=== PATIENT | male | born 1935 | race Caucasian/White ===

== ENCOUNTER 2016-10-01 11:44 | Inpatient (IN) | payer MEDICARE, OTHER ==
[~2016-10-01] VITALS: Ht 180.3 cm; Wt 107.4 kg
[2016-10-01 11:47] VITALS: BP 136/88; PULSE 80; RESP 14; TEMP 99.2; O2SAT 95
[2016-10-01 18:00] VITALS: BP 149/92; PULSE 119; RESP 18; O2SAT 91
[2016-10-01] MEDS ORDERED: WARF-23 PO (18:13)
[2016-10-01] MEDS ORDERED: SAWCAP2 PO (18:13)
[2016-10-01] MEDS ORDERED: PRAV20TA2 PO (18:13)
[2016-10-01] MEDS ORDERED: MAGNESIUM (18:13)
[2016-10-01] MEDS ORDERED: WARF-21 PO (18:13)
[2016-10-01 18:45] LABS: AUTOMATED NEUTROPHIL # 7.4 TH/MM3 (1.8-7.7); BASOPHIL % 0.3 % (0.0-2.0); EOSINOPHIL # 0.1 TH/MM3 (0-0.4); EOSINOPHIL % 0.8 % (0.0-4.0); HEMATOCRIT 39.8 % (39.0-51.0); HEMO FLAGS DIFF FINAL; LYMPH % 5.1 % (9.0-44.0); LYMPHOCYTE # 0.5 TH/MM3 (1.0-4.8); MEAN CELL VOLUME 94.1 FL (80.0-100.0); MEAN CORPUSCULAR HEMOGLOBIN 31.8 PG (27.0-34.0); MEAN CORPUSCULAR HGB CONC 33.8 % (32.0-36.0); MONO % 13.5 % (0.0-8.0); NEUT % 80.3 % (16.0-70.0); PLATELET COUNT 163 TH/MM3 (150-450); RED BLOOD COUNT 4.23 MIL/MM3 (4.50-5.90); RED CELL DISTRIBUTION WIDTH 13.3 % (11.6-17.2); WHITE BLOOD COUNT 9.2 TH/MM3 (4.0-11.0)
[2016-10-01 19:00] VITALS: BP 146/92; PULSE 100; RESP 18; O2SAT 94
[2016-10-01 19:01] LABS: APTT (PATIENT) 62.5 SEC (24.3-30.1); INTERNATIONAL NORMALIZED RATIO 2.3 RATIO
[2016-10-01 19:02] LABS: BLOOD GAS BASE EXCESS 0.2 mmol/L (-2-2); BLOOD GAS CARBOXYHEMOGLOBIN 2.5 % (0-4); BLOOD GAS HCO3 24 mmol/L (22-26); BLOOD GAS METHEMOGLOBIN 1.6 % (0-2); BLOOD GAS O2 HGB SATURATION 89 % (90-100); BLOOD GAS OXYGEN CONTENT 17.2 Vol % (12.0-20.0); BLOOD GAS PCO2 33 mmHg (38-42); BLOOD GAS PO2 62 mmHG (61-120); BLOOD GAS TOTAL HGB 13.8 G/DL (12.0-16.0); TEMP CORR TO 98.6
[2016-10-01 19:03] LABS: CRITICAL VALUE YES; DRAW SITE RT RADIAL; FIO2 21 %; NUMBER OF ARTERIAL PUNCTURES 1; OXYGEN DEVICE ROOM AIR; STAT YES; ULNAR PULSE PRESENT
--- NOTE | 2016-10-01 19:04 | PD ---
HPI Chief Complaint: General Weakness Time Seen by Provider: 17:37 Travel History International Travel<30 days: No Contact w/Intl Traveler<30days: No Traveled to known affect area: No History of Present Illness HPI This is an 81-year-old male who presents to the emergency department with progressive worsening weakness over the past week. History is limited because he is hard of hearing and most history is obtained through his . The reports that he started having neck stiffness one week ago and progressively has gotten increasingly weak. He says that his weakness has affected his arms and his legs equally. Over the past several days he's been unable to walk and unable to get to the bathroom quick enough. His is having a hard time managing him at home. He's been to the emergency department at [facility] times. There they did a CT of his head and cervical spine and diagnosed with torticollis and discharged him. He saw Dr. Lee Hciks in clinic who ordered an MRI of the cervical spine which was reportedly reassuring. He referred him to come to [place] for further evaluation. [facility] Past Medical History Atrial Fibrillation: Yes Heart Rhythm Problems: Yes (A. 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 HEAD: Atraumatic. Normocephalic. EYES: Pupils equal and round. No injection or drainage. ENT: Moist mucous membranes NECK: Trachea midline. CARDIOVASCULAR: Regular rate and rhythm. No murmur appreciated. RESPIRATORY: Clear to auscultation. Breath sounds equal bilaterally. GASTROINTESTINAL: Abdomen soft, non-tender, nondistended. MUSCULOSKELETAL: No obvious deformities. NEUROLOGICAL: Awake and alert. No obvious cranial nerve deficits. 4 out of 5 strength in the bilateral lower extremities, 5 out of 5 strength in the bilateral upper extremities. 3+ brachial radialis reflexes bilaterally, patellar and Achilles reflexes bilaterally with some fatigable clonus in the bilateral lower extremities. Fasciculations in the upper extremities. No ataxia. PSYCHIATRIC: Appropriate mood and affect; insight and judgment normal. Data Data Last Documented VS Vital Signs Date Time Temp Pulse Resp B/P Pulse Ox O2 Delivery O2 Flow Rate FiO2 10/01/16 18:02 103 16 92 Room Air 10/01/16 18:00 149/92 10/01/16 11:47 99.2 Orders Complete Blood Count With Diff (10/01/16 18:06) Comprehensive Metabolic Panel (10/01/16 18:06) Creatine Kinase (Cpk) (10/01/16 18:06) ^ Insert Iv (10/01/16 18:06) Urinalysis - C+S If Indicated (10/01/16 18:06) Arterial Blood Gas (Abg) (10/01/16 ) Prothrombin Time / Inr (Pt) (10/01/16 18:06) Act Partial Throm Time (Ptt) (10/01/16 18:06) Labs Laboratory Tests Test 10/01/16 18:30 White Blood Count 9.2 TH/MM3 Red Blood Count 4.23 MIL/MM3 Hemoglobin 13.5 GM/DL Hematocrit 39.8 % Mean Corpuscular Volume 94.1 FL Mean Corpuscular Hemoglobin 31.8 PG Mean Corpuscular Hemoglobin 33.8 % Concent Red Cell Distribution Width 13.3 % Platelet Count 163 TH/MM3 Mean Platelet Volume 9.5 FL Neutrophils (%) (Auto) 80.3 % Lymphocytes (%) (Auto) 5.1 % Monocytes (%) (Auto) 13.5 % Eosinophils (%) (Auto) 0.8 % Basophils (%) (Auto) 0.3 % Neutrophils # (Auto) 7.4 TH/MM3 Lymphocytes # (Auto) 0.5 TH/MM3 Monocytes # (Auto) 1.3 TH/MM3 Eosinophils # (Auto) 0.1 TH/MM3 Basophils # (Auto) 0.0 TH/MM3 CBC Comment DIFF FINAL Differential Comment MDM Medical Decision Making Medical Screen Exam Complete: Yes Emergency Medical Condition: Yes Differential Diagnosis Cervical myelopathy, multiple sclerosis, ALS, Guillain-Lynch, stroke, myasthenia gravis, [place] Narrative Course This is an 81-year-old male who presents to the emergency department with progressive weakness that's been worsening over the past week. He is at the point where he is unable to walk and is unable to transfer from wheelchair to bed without full assistance. He was placed on a monitor and an IV was established labs will be obtained. I don't think any additional imaging is warranted here in the emergency department as he's had CT scans at outside hospital. He is hyperreflexic on exam with some objective weakness in the bilateral lower extremities. I think the patient requires inpatient neurology consultation. He will possibly require further imaging and an LP. Dr. Smith will follow-up on labs and admit the patient. Carol Blevins MD Oct 01, 2016 19:04
[2016-10-01 19:11] LABS: ANION GAP 8 MEQ/L (5-15); AST (GOT) 34 U/L (15-37); BICARBONATE 26.6 MEQ/L (21.0-32.0); BLOOD UREA NITROGEN 17 MG/DL (7-18); CHLORIDE 104 MEQ/L (98-107); GLOMERULAR FILTRATION RATE 71 ML/MIN (>89); POTASSIUM 4.1 MEQ/L (3.5-5.1); SODIUM (NA) 139 MEQ/L (136-145)
[2016-10-01 19:15] LABS: ALKALINE PHOSPHATASE 98 U/L (45-117); ALT (GPT) 29 U/L (12-78)
[2016-10-01 19:25] LABS: CREATINE KINASE 61 U/L (39-308)
[2016-10-01 19:35] LABS: BLOOD, URINE MOD (NEG); COMMENT (UR) CULT NOT INDICATED; CULTURE IF INDICATED CULT NOT INDICATED; GLUCOSE,URINE NEG (NEG); KETONE, URINE 10 mg/dL (NEG); MUCUS URINE FEW /lpf (OCC); NITRITE,URINE NEG (NEG); PH, URINE 5.5 (5.0-8.5); URINE COLOR YELLOW (YELLW/STRAW)
[2016-10-01 20:00] VITALS: BP 188/91; PULSE 101; RESP 18; O2SAT 95
--- NOTE | 2016-10-01 21:24 | HHI.HP ---
HPI Service [facility] Primary Care Physician Non-Staff Admission Diagnosis Bilateral upper and lower extremity weakness, Diagnoses: (1) Weakness Diagnosis: Principal (2) Dehydration Diagnosis: Principal (3) A-fib Diagnosis: Principal (4) HTN (hypertension) Diagnosis: Principal Travel History International Travel<30 Days: No Contact w/Intl Traveler <30 Da: No Traveled to Known Affected Are: No History of Present Illness This is an 81-year-old male with PMH of HTN, A. fib on Coumadin and Hyperlipidemia who was referred to the ER by his Orthopedic Surgeon, Dr. Lee Hicks for further evaluation of weakness. Pt poor historian, however he notes significant pain in the "back of my head" for approx 1wk, shortly after developed weakness of bilateral arms and legs. Per , pt has been unable to ambulate x1 wk since onset of symptoms. Denies recent fever, chills, nausea, vomiting or sick contacts. Was seen at [place], CT Head/C-Spine reportedly negative and pt diagnosed w/ Cervical Torticollis and was d/c'd from ER. Seen by Dr. Hicks and referred for outpatient MRI C-Spine, also reportedly normal however sent to ER for progressive symptoms. On arrival, BP 149/92, HR 119, O2 sat 91% on RA, Temp 99.2. CBC unremarkable except for elevated neutrophil count. Chemistry unremarkable except for GFR 71. UA negative for UTI, mild hematuria. INR 2.3. Review of Systems Except as stated in HPI: all other systems reviewed are Neg ROS: 14 point review of systems otherwise negative. Past Family Social History Past Medical History PMH: HTN, A. fib on Coumadin and Hyperlipidemia Past Surgical History PAST SURGICAL HISTORY: Bilateral Cataract Surgery, Squamous Cell Melanoma Left Arm Allergies: Coded Allergies: No Known Allergies (Unverified , 10/01/16) Family History PAST FAMILY HISTORY: Reviewed. No h/o DM or CAD Social History PAST SOCIAL HISTORY: Occasional alcohol. Negative for tobacco or drugs. Physical Exam Vital Signs Vital Signs Date Time Temp Pulse Resp B/P Pulse Ox O2 Delivery O2 Flow Rate FiO2 10/01/16 20:00 101 18 188/91 95 Nasal Cannula 2 10/01/16 19:00 100 18 146/92 94 Nasal Cannula 2 10/01/16 18:02 103 16 92 Room Air 10/01/16 18:00 119 18 149/92 91 Room Air 10/01/16 11:47 99.2 80 14 136/88 95 Room Air Physical Exam PE: GENERAL: Elderly white male in no acute distress, [place], slow to verbalize but no apparent mental status change. HEENT: PERRLA, EOMI. No scleral icterus or conjunctival pallor. No lid lag or facial droop. Neck decreased ROM of flexion/extension due to pain CARDIOVASCULAR: Regular rate and rhythm. No obvious murmurs to auscultation. No chest tenderness to palpation. RESPIRATORY: No obvious rhonchi or wheezing. Clear to auscultation. Breath sounds equal bilaterally. GASTROINTESTINAL: Abdomen soft, non-tender, nondistended. BS normal. MUSCULOSKELETAL: Extremities without clubbing, cyanosis, or edema. No obvious deformities. NEUROLOGICAL: Awake, alert and oriented x4. No focal neurologic deficits. Moving both upper and lower extremities spontaneously. Strength 4/5 upper extremities, 5/5 lower extremities. Decreased hand life scientists. Laboratory Laboratory Tests Test 10/01/16 10/01/16 10/01/16 18:30 18:45 18:56 White Blood Count 9.2 Red Blood Count 4.23 Hemoglobin 13.5 Hematocrit 39.8 Mean Corpuscular Volume 94.1 Mean Corpuscular Hemoglobin 31.8 Mean Corpuscular Hemoglobin 33.8 Concent Red Cell Distribution Width 13.3 Platelet Count 163 Mean Platelet Volume 9.5 Neutrophils (%) (Auto) 80.3 Lymphocytes (%) (Auto) 5.1 Monocytes (%) (Auto) 13.5 Eosinophils (%) (Auto) 0.8 Basophils (%) (Auto) 0.3 Neutrophils # (Auto) 7.4 Lymphocytes # (Auto) 0.5 Monocytes # (Auto) 1.3 Eosinophils # (Auto) 0.1 Basophils # (Auto) 0.0 CBC Comment DIFF FINAL Differential Comment Prothrombin Time 26.0 Prothromb Time International 2.3 Ratio Activated Partial 62.5 Thromboplast Time Sodium Level 139 Potassium Level 4.1 Chloride Level 104 Carbon Dioxide Level 26.6 Anion Gap 8 Blood Urea Nitrogen 17 Creatinine 1.01 Estimat Glomerular Filtration 71 Rate Random Glucose 116 Calcium Level 8.7 Total Bilirubin 1.0 Aspartate Amino Transf 34 (AST/SGOT) Alanine Aminotransferase 29 (ALT/SGPT) Alkaline Phosphatase 98 Total Creatine Kinase 61 Total Protein 7.3 Albumin 3.0 Urine Color YELLOW Urine Turbidity CLEAR Urine pH 5.5 Urine Specific [place] 1.031 Urine Protein 30 Urine Glucose (UA) NEG Urine Ketones 10 Urine Occult Blood MOD Urine Nitrite NEG Urine Bilirubin NEG Urine Urobilinogen 2.0 Urine Leukocyte Esterase NEG Urine RBC 6 Urine WBC 1 Urine Mucus FEW Microscopic Urinalysis Comment CULT NOT INDICATED Blood Gas Puncture Site RT RADIAL Blood Gas Patient Temperature 98.6 Blood Gas HCO3 24 Blood Gas Base Excess 0.2 Blood Gas Oxygen Saturation 89 Arterial Blood pH 7.47 Arterial Blood Partial 33 Pressure CO2 Arterial Blood Partial 62 Pressure O2 Arterial Blood Oxygen Content 17.2 Arterial Blood 2.5 Carboxyhemoglobin Arterial Blood Methemoglobin 1.6 Blood Gas Hemoglobin 13.8 Oxygen Delivery Device ROOM AIR Blood Gas Inspired Oxygen 21 Result Diagram: 10/01/16182910/01/161829 Assessment and Plan Problem List: (1) Weakness ICD Code: R53.1 Status: Acute (2) Dehydration ICD Code: E86.0 Status: Acute (3) A-fib ICD Code: I48.91 Status: Acute (4) HTN (hypertension) ICD Code: I10 Status: Acute Assessment and Plan A/P: 1. Weakness: progressive upper and lower extremity weakness x1 wk w/ associated neck stiffness, no recent viral infection. S/p eval by Dr. Lee Hicks, sent for outpatient MRI C-Spine, reportedly normal and referred to ER for further evaluation. CT Head[facility]Sp[facility] at [facility] also reportedly negative. Check NCV/EMG, Will consult Dr. Hicks for further evaluation, also consult Neurology, likely need LP. PT for eval/tx. 2. Dehydration: GFR 71, BUN/Creatinine normal. U/a negative for UTI, mild hematuria. Repeat U/a to eval for persistent hematuria. IVF for hydration, repeat labs in am. 3. A-fib: Chronic. On Coumadin. INR 2.3, will hold Coumadin for possible LP. Repeat INR in am. 4. HTN: BP 160's systolic, will monitor. 5. DVT Prophylaxis: SCD/Teds. 6. Social work for d/c planning as needed. 7. Case discussed w/ ER physician at length. Evelyne Jacobs MD Oct 01, 2016 21:24
[2016-10-01] MEDS ORDERED: ONDANSETRON HCL 4 MG/2 ML VIAL IVP PRN (21:30)
[2016-10-01] MEDS ORDERED: BISACODYL 10 MG SUPP PR PRN (21:30)
[2016-10-01] MEDS ORDERED: METOPROLOL TARTRATE 5 MG/5 ML VIAL IV PUSH ONE (21:30)
[2016-10-01] MEDS ORDERED: ACETAMINOPHEN 325 MG TAB PO PRN (21:30)
[2016-10-01] MEDS: SODIUM CHLOR 0.9% 1000 ML INJ 1,000 ML IV SCH (22:05)
[2016-10-01 22:06] VITALS: BP 161/99; PULSE 121; RESP 18; O2SAT 97
--- NOTE | 2016-10-01 22:12 | PD ---
Physical Exam Date Seen by Provider: Oct 01, 2016 Time Seen by Provider: 19:15 Narrative Patient signed out to me by Dr. Carol Blevins at 7 PM. I was the physician replacing her. At this time, we are waiting on laboratory tests to come back. The decision was to admit the patient. The patient has new onset bilateral upper and lower shimmy weakness with clonus. Data Data Last Documented VS Vital Signs Date Time Temp Pulse Resp B/P Pulse Ox O2 Delivery O2 Flow Rate FiO2 10/01/16 20:00 101 18 188/91 95 Nasal Cannula 2 10/01/16 11:47 99.2 Orders Complete Blood Count With Diff (10/01/16 18:06) Comprehensive Metabolic Panel (10/01/16 18:06) Creatine Kinase (Cpk) (10/01/16 18:06) ^ Insert Iv (10/01/16 18:06) Urinalysis - C+S If Indicated (10/01/16 18:06) Arterial Blood Gas (Abg) (10/01/16 ) Prothrombin Time / Inr (Pt) (10/01/16 18:06) Act Partial Throm Time (Ptt) (10/01/16 18:06) Diet Heart Healthy (10/01/16 Dinner) Admit Order (Ed Use Only) (10/01/16 20:38) Labs Laboratory Tests Test 10/01/16 10/01/16 10/01/16 18:30 18:45 18:56 White Blood Count 9.2 TH/MM3 Red Blood Count 4.23 MIL/MM3 Hemoglobin 13.5 GM/DL Hematocrit 39.8 % Mean Corpuscular Volume 94.1 FL Mean Corpuscular Hemoglobin 31.8 PG Mean Corpuscular Hemoglobin 33.8 % Concent Red Cell Distribution Width 13.3 % Platelet Count 163 TH/MM3 Mean Platelet Volume 9.5 FL Neutrophils (%) (Auto) 80.3 % Lymphocytes (%) (Auto) 5.1 % Monocytes (%) (Auto) 13.5 % Eosinophils (%) (Auto) 0.8 % Basophils (%) (Auto) 0.3 % Neutrophils # (Auto) 7.4 TH/MM3 Lymphocytes # (Auto) 0.5 TH/MM3 Monocytes # (Auto) 1.3 TH/MM3 Eosinophils # (Auto) 0.1 TH/MM3 Basophils # (Auto) 0.0 TH/MM3 CBC Comment DIFF FINAL Differential Comment Prothrombin Time 26.0 SEC Prothromb Time International 2.3 RATIO Ratio Activated Partial 62.5 SEC Thromboplast Time Sodium Level 139 MEQ/L Potassium Level 4.1 MEQ/L Chloride Level 104 MEQ/L Carbon Dioxide Level 26.6 MEQ/L Anion Gap 8 MEQ/L Blood Urea Nitrogen 17 MG/DL Creatinine 1.01 MG/DL Estimat Glomerular Filtration 71 ML/MIN Rate Random Glucose 116 MG/DL Calcium Level 8.7 MG/DL Total Bilirubin 1.0 MG/DL Aspartate Amino Transf 34 U/L (AST/SGOT) Alanine Aminotransferase 29 U/L (ALT/SGPT) Alkaline Phosphatase 98 U/L Total Creatine Kinase 61 U/L Total Protein 7.3 GM/DL Albumin 3.0 GM/DL Urine Color YELLOW Urine Turbidity CLEAR Urine pH 5.5 Urine Specific [place] 1.031 Urine Protein 30 mg/dL Urine Glucose (UA) NEG mg/dL Urine Ketones 10 mg/dL Urine Occult Blood MOD Urine Nitrite NEG Urine Bilirubin NEG Urine Urobilinogen 2.0 MG/DL Urine Leukocyte Esterase NEG Urine RBC 6 /hpf Urine WBC 1 /hpf Urine Mucus FEW /lpf Microscopic Urinalysis Comment CULT NOT INDICATED Blood Gas Puncture Site RT RADIAL Blood Gas Patient Temperature 98.6 Blood Gas HCO3 24 mmol/L Blood Gas Base Excess 0.2 mmol/L Blood Gas Oxygen Saturation 89 % Arterial Blood pH 7.47 Arterial Blood Partial 33 mmHg Pressure CO2 Arterial Blood Partial 62 mmHG Pressure O2 Arterial Blood Oxygen Content 17.2 Vol % Arterial Blood 2.5 % Carboxyhemoglobin Arterial Blood Methemoglobin 1.6 % Blood Gas Hemoglobin 13.8 G/DL Oxygen Delivery Device ROOM AIR Blood Gas Inspired Oxygen 21 % [facility] Medical Record Reviewed: Yes Supervised Visit with GIOVANNI: No Differential Diagnosis Cervical spine disease with cord associated weakness versus Lyme disease versus ALS versus other neurologic progressive disease Narrative Course 81-year-old gentleman who presents with 1 week of neck pain and stiffness followed by weakness of his bilateral upper and lower extremities. The patient was seen initially by Dr. Carol Blevins and initial workup started. We are waiting on labs before admission. Laboratory tests come back within normal limits. The case was discussed with Dr. Evelyne Che, [facility], who will bring the patient under her service under observation. The patient is currently on Coumadin and his INR is 2.5. If we anticipate lumbar puncture, the Coumadin will need to be held. Diagnosis Primary Impression: bilateral upper and lower extremity weakness Additional Impression: cervical spine pain and stiffness Caio Smith MD Oct 01, 2016 22:12
[2016-10-02] VITALS (7 sets, daily range): BP systolic 147–174; BP diastolic 87–107; PULSE 76–140; RESP 14–18; TEMP 98–98.8; O2SAT 90–99
[2016-10-02 04:04] LABS: AUTOMATED NEUTROPHIL # 7.4 TH/MM3 (1.8-7.7); BASOPHIL % 0.4 % (0.0-2.0); EOSINOPHIL % 0.5 % (0.0-4.0); HEMATOCRIT 38.3 % (39.0-51.0); HEMO FLAGS DIFF FINAL; LYMPH % 6.1 % (9.0-44.0); LYMPHOCYTE # 0.6 TH/MM3 (1.0-4.8); MEAN CELL VOLUME 93.5 FL (80.0-100.0); MEAN CORPUSCULAR HGB CONC 34.2 % (32.0-36.0); MONO % 15.5 % (0.0-8.0); NEUT % 77.5 % (16.0-70.0); PLATELET COUNT 165 TH/MM3 (150-450); RED CELL DISTRIBUTION WIDTH 13.3 % (11.6-17.2); WHITE BLOOD COUNT 9.6 TH/MM3 (4.0-11.0)
[2016-10-02 04:27] LABS: ALT (GPT) 26 U/L (12-78); ANION GAP 9 MEQ/L (5-15); AST (GOT) 30 U/L (15-37); BICARBONATE 25.3 MEQ/L (21.0-32.0); BLOOD UREA NITROGEN 17 MG/DL (7-18); CHLORIDE 107 MEQ/L (98-107); GLOMERULAR FILTRATION RATE 82 ML/MIN (>89); SODIUM (NA) 141 MEQ/L (136-145)
[2016-10-02 04:28] LABS: ALKALINE PHOSPHATASE 98 U/L (45-117); TOTAL BILIRUBIN ADULT 1.3 MG/DL (0.2-1.0)
[2016-10-02 04:31] LABS: INTERNATIONAL NORMALIZED RATIO 2.4 RATIO; PROTHROMBIN TIME - PATIENT 27.4 SEC (9.8-11.6)
[2016-10-02] MEDS: PRAVASTATIN SOD 20 MG TAB PO SCH (08:38)
[2016-10-02] MEDS: SODIUM CHLOR 0.9% 1000 ML INJ 1,000 ML IV SCH ×2 (08:38→15:55)
[2016-10-02] MEDS: SODIUM CHLORIDE 0.9% FLUSH 5 ML FLUSH FLUSH SCH ×2 (08:38→20:21)
--- NOTE | 2016-10-02 10:00 | MB ---
cc: JESSE RICCI M.D., CAMILLE MD DATE OF CONSULTATION October 02, 2016 REQUESTING PHYSICIAN Evelyne Jacobs MD CHIEF COMPLAINT Neck pain, weakness. HISTORY OF PRESENT ILLNESS An 81-year-old male presents with the following history: On September 26, 2016, the patient insidious onset of stiffness, neck pain and generalized weakness. He went to [facility] in [place] two times on September 26, 2016, and then went back to that same facility on September 28, 2016. The patient was evaluated by myself in the office on September 30, 2016. X-rays of the cervical spine showed the patient to have cervical spine degenerative disc disease and osteoarthritis. MRI scan of the cervical spine was taken at [facility] on September 30, 2016. This showed the patient to have C4-5 osteophyte disk complex, right greater left foraminal stenosis; C5-6 osteophyte disk complex, mild to moderate protruding disk, right greater then left foraminal stenosis; C6-7 osteophyte disk complex; degenerative disc disease, osteoarthritis. The patient did not show significant spinal cord compression. There was no evidence of a diskitis by MRI scan. The patient telephoned the office yesterday. stated that the patient was so weak that she could not him out of a chair. I told the family to have him transported to [facility] Emergency Department for further evaluation and management. PAST MEDICAL HISTORY, PAST SURGICAL HISTORY, FAMILY HISTORY, REVIEW OF SYSTEMS See accompanying records. PHYSICAL EXAMINATION GENERAL: An 81-year-old male who looks his stated age. The patient has mild degree of spasm and tenderness of the posterior cervical spine area. Flexion 20 degrees, extension 10 degrees, left rotation is 20 degrees, right rotation 20 degrees. Negative Luly sign. Negative Babinski side. No myotomal weakness was noted. IMPRESSION 1. Cervical spine degenerative disc disease, osteoarthritis. 2. Generalized weakness. PLAN 1. Recommend Neurology evaluation. 2. I explained to the patient he may be required to have a lumbar spine puncture with analysis of cerebrospinal fluid to rule out possible meningitis. 3. Also we will order a CPK, Westergren sed rate, C-reactive protein. 4. We will continue to monitor the patient with you. Jesse Ricci MD AG/SSB /9:35 AM /9:45 AM
--- NOTE | 2016-10-02 11:18 | MB ---
cc: ANJU MILES M.D. DATE OF CONSULTATION 10/02/2016 DATE OF 1935 AGE [age] years old REASON FOR CONSULTATION Possible meningitis. The patient is an 81-year-old gentleman. History is taken solely from his . Apparently the patient was fine . They were active, they were bike riding. The patient started experiencing some weakness, some cervicogenic pain. I believe she stated on Thursday went to [facility] twice that day, went back to the same facility two days later, dismissed from there and hence came to the hospital yesterday. He was initially referred to Orthopedic Surgery; he saw Dr. Lee Hicks on 09/30/2016, had x-rays of his spine showing some degenerative changes. MRI was taken at [facility] the same day showing osteophyte complex at C4-5, some foraminal stenosis, C5-6 osteophyte complex, C6-7 osteophyte complex, but no cord compression, no enhancing lesions. Apparently yesterday the had to bring him in because he was unable to actually get up and walk on his own. The patient currently denies any severe neck pain. Denies a headache. Denies chest pain or shortness of breath. His stated he did not have any upper respiratory symptoms such as rhinorrhea or any cough. He has not been exposed to any sick people as far as they know. PAST MEDICAL HISTORY 1. Hypertension. 2. Atrial fibrillation on Coumadin. 3. Hyperlipidemia. PAST SURGICAL HISTORY 1. Cataracts. 2. Squamous cell melanoma left arm. ALLERGIES None reported. FAMILY HISTORY Noncontributory at this time. 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 Patient with alcohol. No tobacco or drugs. HOME MEDICATIONS Refer to his MAR are but apparently is on - 1. Pravastatin. 2. Saw palmetto. 3. Warfarin. ALLERGIES None reported. PHYSICAL EXAMINATION VITALS: Current temperature is 98.1, last temperature was 99.2 and that is his T-max, heart rate 83, respiratory rate 14, blood pressure 173/90 sating at 94% on 2 liters nasal cannula. HEAD AND NECK: His neck is supple. It appears that he has some type of a lipoma in his occiput, maybe a sebaceous cyst, a little bit higher. On exam I do not appreciate any nuchal rigidity, just some tenderness. He can actually touch his chin to his breastbone. No signs of meningismus. Pupils are reactive. Visual wong are full. Face is symmetrical. Tongue midline. NEUROLOGIC: He is awake and alert. He knows he is in [place]. He cannot name the hospital. He can name his . He knows his date of and age. She knows the month and the year. He can name the President. Speech otherwise is fluent. Motor-cardoso he does not have any significant weakness in his arms or legs. No drift. No leg lag. No Luly's sign. No signs of myelopathy. DTRs are 2-3+ in the knees, 2+ upper extremities. Toes he withdraws. Cerebellar - Normal gait; cannot be assessed at this time. LABORATORY DATA White count is normal 9.2-9.6 on two consecutive days, hematocrit 38.3, neutrophils 77.5. Coag panel - INR is 2.4, PT 27.6. Chemistries - GFR 82, glucose 111, calcium 8.4, bilirubin 1.3, CRP is 15.8, albumin 2.8. Sed rate still pending I believe. Urine - Moderate blood, 6 RBCs. Culture is not indicated. There is no imaging performed of the brain. IMPRESSION An 81-year-old man with some cervicogenic pain, certainly I doubt this is a bacterial meningitis, could be of viral etiology. Infectious Disease will evaluate the patient. We will defer to ID if they think he needs a spinal tap; however, would consider putting him on acyclovir preventatively. I am going to get an EEG as well. I am not convinced that he needs antibiotics. I will also go ahead and get an MRI of the brain to make sure there is nothing else going on such as infarction or any enhancement. Of note, the patient has not received any type of injections in his neck such as an epidural; this does not look like a diskitis either. We will have Infectious Disease comment as well and I will go ahead and get the MRI and the EEG and make further recommendations. Thank you. MD AMARILYS Bennett/KAILASH /10:41 AM /11:00 AM
--- NOTE | 2016-10-02 12:59 | RADRPT ---
EXAM DATE/TIME: 10/02/2016 12:09 [place] COMPARISON: No previous studies available for comparison. INDICATIONS : Encephalitis. Neuro changes with neck pain. MEDICAL HISTORY : Hypertension. Atrial fibrillation. SURGICAL HISTORY : Cataracts and skin cancer removal. ENCOUNTER: Initial ACUITY: 2 day PAIN SCORE: 0/10 LOCATION: Head. TECHNIQUE: Multiplanar, multisequence MRI of the brain was performed without contrast. FINDINGS: CEREBRUM: Atrophy. There is an area of encephalomalacia involving the right occipital lobe. The ventricles are normal for age. No evidence of midline shift, mass lesion, hemorrhage or acute infarction. No extra axial fluid collections are seen. The pituitary gland and suprasellar cistern are normal in configur ation. WHITE MATTER: Multiple foci of high T2 signal abnormality involving the periventricular white matter of both cerebr al hemispheres. POSTERIOR FOSSA: The cerebellum and brainstem are intact. The 4th ventricle is midline. The cerebellopontine angle is unremarkable. The cerebellar tonsils are normal in position. DIFFUSION IMAGING: No focal areas of restricted diffusion are seen. No evidence of acute infarction. EXTRACRANIAL: The visualized portions of the orbits and paranasal sinuses are unremarkable. CONCLUSION: 1. No acute intracranial abnormality. 2. Atrophy and chronic small vessel ischemic change. 3. Area of encephalomalacia within the right occipital lobe. Munir Cui Jr., MD on October 02, 2016 at 12:54 Board Certified Radiologist. This report was verified electronically.
--- NOTE | 2016-10-02 14:22 | HHI.PR ---
Subjective Remarks Follow-up weakness 10/02/16-patient seen and examined, continue to complain of lower extremities weakness as well as some neck pain. Otherwise afebrile. Case discussed with neurology Objective Vitals Vital Signs Date Time Temp Pulse Resp B/P Pulse Ox O2 Delivery O2 Flow Rate FiO2 10/02/16 12:44 79 16 168/90 98 Nasal Cannula 2 10/02/16 07:31 98.1 83 14 173/90 94 10/02/16 04:50 76 16 165/99 99 Room Air 10/01/16 22:06 121 18 161/99 97 Nasal Cannula 2 10/01/16 20:00 101 18 188/91 95 Nasal Cannula 2 10/01/16 19:00 100 18 146/92 94 Nasal Cannula 2 10/01/16 18:02 103 16 92 Room Air 10/01/16 18:00 119 18 149/92 91 Room Air Result Diagram: 10/02/16 0343 10/02/16 0343 Imaging Last Impressions Brain MRI 10/02/16 0000 Signed Impressions: Service Date/Time: September 12:09 - CONCLUSION: 1. No acute intracranial abnormality. 2. Atrophy and chronic small vessel ischemic change. 3. Area of encephalomalacia within the right occipital lobe. Munir Cui Jr., MD Objective Remarks GENERAL: Mild distress SKIN: Warm and dry. HEAD: Normocephalic. EYES: No scleral icterus. No injection or drainage. NECK: Tenderness, trachea midline. No JVD or lymphadenopathy. CARDIOVASCULAR: Regular rate and rhythm with II/ ARA RESPIRATORY: Breath sounds equal bilaterally. No accessory muscle use. GASTROINTESTINAL: Abdomen soft, non-tender, nondistended. MUSCULOSKELETAL: No cyanosis, or edema. BACK: Nontender without obvious deformity. No CVA tenderness. A/P Problem List: (1) Weakness ICD Code: R53.1 Status: Acute (2) Dehydration ICD Code: E86.0 Status: Acute (3) A-fib ICD Code: I48.91 Status: Acute (4) HTN (hypertension) ICD Code: I10 Status: Acute Assessment and Plan 81-year-old male with 1. Weakness: progressive upper and lower extremity weakness x1 wk w/ associated neck stiffness, no recent viral infection. S/p eval by Dr. Lee Hicks, sent for outpatient MRI C-Spine, reportedly normal and referred to ER for further evaluation. CT Head/C-Spine at [facility] also reportedly negative. Neurology as well as orthopedic surgery consulted and evaluated patient. Infectious disease patient has been consulted. LP per infectious disease specialist. We'll hold on starting any antibiotics at this time despite elevated both sedimentation rate and CRP. PT consult to treat and eval 2. Dehydration: Resolved with IVF for hydration 3. A-fib: Chronic. On Coumadin. INR 2.3, continue to hold Coumadin for possible LP. 4. HTN: BP 160's systolic, will monitor. 5. DVT Prophylaxis: SCD/Teds. Cesar Arcos MD Oct 02, 2016 14:22
[2016-10-02] MEDS: MORPHINE SULFATE 4 MG/ML INJ IV PRN (15:56)
--- NOTE | 2016-10-02 16:30 | MG ---
cc: PEGGY COLLIER M.D. Lab No:[id number] Date: 10/02/2016 Age: Sex: M Race: Cc. TECHNIQUE 17 channel EEG. DESCRIPTION The background rhythm has a symmetrical alpha rhythm frequency 8 Hz amplitude 20-30 microvolts. During drowsiness there is mild slowing in the theta range. There are no lateralizing features seen. There are no epileptiform discharges present. Photic stimulation results in a modest driving response. INTERPRETATION Mildly abnormal study. The basic generalized slowing in the theta range consistent with a mild encephalopathy versus drowsiness. MD EDUARD Minor/flakito /4:16 PM /4:23 PM
[2016-10-03] VITALS: BP 148/93; PULSE 74; RESP 18; TEMP 98.8; O2SAT 98
[2016-10-03] MEDS: SODIUM CHLOR 0.9% 1000 ML INJ 1,000 ML IV SCH ×3 (00:35→12:14)
--- NOTE | 2016-10-03 07:04 | PD.ORT.PN ---
Subjective Subjective Remarks No c/o neck pain,c/o neck stiffness Patient confused Objective Vitals Vital Signs Date Time Temp Pulse Resp B/P Pulse Ox O2 Delivery O2 Flow Rate FiO2 10/02/16 23:43 98.8 106 18 148/93 96 10/02/16 23:31 98.0 140 18 147/107 90 10/02/16 20:59 98.8 87 18 174/88 97 10/02/16 16:56 78 18 171/87 94 Nasal Cannula 2 10/02/16 12:44 79 16 168/90 98 Nasal Cannula 2 10/02/16 07:31 98.1 83 14 173/90 94 Result Diagram: 10/02/16 0343 10/02/16 0343 Objective Remarks Minimal neck tenderness No focal neuro deficits Patient confused,disoriented Assessment & Plan Assessment and Plan Ortho stable Appreciated Neurology eval Await ID Lee Gudino MD Oct 03, 2016 07:03
[2016-10-03 07:06] LABS: AUTOMATED NEUTROPHIL # 8.9 TH/MM3 (1.8-7.7); BASOPHIL % 0.3 % (0.0-2.0); EOSINOPHIL % 0.2 % (0.0-4.0); HEMATOCRIT 37.2 % (39.0-51.0); HEMO FLAGS DIFF FINAL; LYMPH % 3.7 % (9.0-44.0); LYMPHOCYTE # 0.4 TH/MM3 (1.0-4.8); MEAN CELL VOLUME 93.7 FL (80.0-100.0); MEAN CORPUSCULAR HEMOGLOBIN 31.8 PG (27.0-34.0); MONO % 13.2 % (0.0-8.0); NEUT % 82.6 % (16.0-70.0); PLATELET COUNT 172 TH/MM3 (150-450); RED BLOOD COUNT 3.98 MIL/MM3 (4.50-5.90); RED CELL DISTRIBUTION WIDTH 13.5 % (11.6-17.2); WHITE BLOOD COUNT 10.8 TH/MM3 (4.0-11.0)
[2016-10-03 07:33] LABS: BICARBONATE 22.4 MEQ/L (21.0-32.0); POTASSIUM 3.7 MEQ/L (3.5-5.1)
[2016-10-03 07:56] VITALS: BP 181/90; PULSE 104; RESP 21; TEMP 97.8; O2SAT 96
--- NOTE | 2016-10-03 08:54 | HHI.PR ---
Subjective Remarks Follow-up weakness 10/02/16-patient seen and examined, continue to complain of lower extremities weakness as well as some neck pain. Otherwise afebrile. Case discussed with neurology 10/03/16-patient seen and examined, alert and oriented 2, still complaining of neck stiffness Objective Vitals Vital Signs Date Time Temp Pulse Resp B/P Pulse Ox O2 Delivery O2 Flow Rate FiO2 10/03/16 07:56 97.8 104 21 181/90 96 10/03/16 00:00 98.8 74 18 148/93 98 10/02/16 23:43 98.8 106 18 148/93 96 10/02/16 23:31 98.0 140 18 147/107 90 10/02/16 20:59 98.8 87 18 174/88 97 10/02/16 16:56 78 18 171/87 94 Nasal Cannula 2 10/02/16 12:44 79 16 168/90 98 Nasal Cannula 2 Result Diagram: 10/03/16 0612 10/03/16 0612 Imaging Last Impressions Brain MRI 10/02/16 0000 Signed Impressions: Service Date/Time: September 12:09 - CONCLUSION: 1. No acute intracranial abnormality. 2. Atrophy and chronic small vessel ischemic change. 3. Area of encephalomalacia within the right occipital lobe. Munir Cui Jr., MD Objective Remarks GENERAL: Mild distress SKIN: Warm and dry. HEAD: Normocephalic. EYES: No scleral icterus. No injection or drainage. NECK: Tenderness, trachea midline. No JVD or lymphadenopathy. CARDIOVASCULAR: Regular rate and rhythm with II/ ARA RESPIRATORY: Breath sounds equal bilaterally. No accessory muscle use. GASTROINTESTINAL: Abdomen soft, non-tender, nondistended. MUSCULOSKELETAL: No cyanosis, or edema. BACK: Nontender without obvious deformity. No CVA tenderness. A/P Problem List: (1) Weakness ICD Code: R53.1 Status: Acute (2) Dehydration ICD Code: E86.0 Status: Acute (3) A-fib ICD Code: I48.91 Status: Acute (4) HTN (hypertension) ICD Code: I10 Status: Acute Assessment and Plan 81-year-old male with 1. Encephalopathy:Brain MRI 10/02/16 with No acute intracranial abnormality. EEG 10/02/16 noted and review with finding of The basic generalized slowing in the theta range consistent with a mild encephalopathy versus drowsiness. 2. Weakness: progressive upper and lower extremity weakness x1 wk w/ associated neck stiffness, no recent viral infection. S/p eval by Dr. Lee Hicks, sent for outpatient MRI C-Spine, reportedly normal and referred to ER for further evaluation. CT Head/C[facility]Spine at [facility] also reportedly negative. Neurology as well as orthopedic surgery consulted and evaluated patient. Infectious disease patient has been consulted and awaiting for evaluation. LP per infectious disease specialist. We'll hold on starting any antibiotics at this time despite elevated both sedimentation rate and CRP. EEG 10/02/16 noted and review with finding ofThe basic generalized slowing in the theta range consistent with a mild encephalopathy versus drowsiness. PT consult to treat and eval 3. Dehydration: Resolved with IVF for hydration 4. A-fib: Chronic. On Coumadin. INR 2.3, continue to hold Coumadin for possible LP. 5. HTN: Labile BP, will start Lopressor 50 mg by mouth every 12H, Vasotec when necessary 6. DVT Prophylaxis: SCD/Teds. Cesar Arcos MD Oct 03, 2016 08:54
[2016-10-03] MEDS: SODIUM CHLORIDE 0.9% FLUSH 5 ML FLUSH FLUSH SCH ×2 (09:00→21:00)
[2016-10-03] MEDS: METOPROLOL TARTRATE 50 MG TAB PO SCH ×2 (09:24→21:00)
[2016-10-03] MEDS ORDERED: PNEUMOCOCCAL POLYVALENT INJ 25 MCG/0.5 ML SYR IM ONE (10:00)
[2016-10-03 12:00] VITALS: BP 152/84; PULSE 76; RESP 18; TEMP 98.6; O2SAT 93
[2016-10-03] MEDS: PRAVASTATIN SOD 20 MG TAB PO SCH (12:12)
[2016-10-03 15:04] VITALS: BP 144/87; PULSE 71; RESP 18; TEMP 98.8; O2SAT 97
--- NOTE | 2016-10-03 20:21 | PD.ID.CON ---
History of Present Illness Service ID Consult Requested By Dr Scott Reason for Consult ? INJECTION PRESS OPERATOR infx Primary Care Physician Non-Staff Diagnoses: History of Present Illness 81 yo male developped neck stiffness and generalysed weakness and lethargy for 1 week He is unable to provide hx, history per @ b/s He is afebrile and his WBC are normal He is NOT on any abx He is not improving and maybe more lethargic since he got sick He is able to talk, swallow wo chocking and has no hallusinations or delirium Main complaint is extrreme weakness MRI of brain unremarkable MRI of neck with degenrative disk dz but no cord compression or diskitis (done Sep 30) Review of Systems ROS Limitations: Clinical Condition, Altered Mental Status Past Family Social History Allergies: Coded Allergies: No Known Allergies (Unverified , 10/01/16) Past Medical History HTN, A. fib on Coumadin and Hyperlipidemia Past Surgical History Bilateral Cataract Surgery, Squamous Cell Melanoma Left Arm Active Ordered Medications Medications where reviewed in EMR Antibiotics Include: none Family History Reviewed. No h/o DM or CAD Social History Occasional alcohol. Negative for tobacco or drugs. Physical Exam Vital Signs Vital Signs Date Time Temp Pulse Resp B/P Pulse Ox O2 Delivery O2 Flow Rate FiO2 10/03/16 15:04 98.8 71 18 144/87 97 10/03/16 12:00 98.6 76 18 152/84 93 10/03/16 07:56 97.8 104 21 181/90 96 10/03/16 00:00 98.8 74 18 148/93 98 10/02/16 23:43 98.8 106 18 148/93 96 10/02/16 23:31 98.0 140 18 147/107 90 10/02/16 20:59 98.8 87 18 174/88 97 Physical Exam CONSTITUTIONAL/GENERAL: This is an adequately nourished patient, in no apparent distress. TUBES/LINES/DRAINS: SKIN: No jaundice, rashes, or lesions. No wounds seen anteriorly. Skin temperature appropriate. Not diaphoretic. HEAD: Atraumatic. Normocephalic. EYES: Pupils equal and round and reactive. Extraocular motions intact. No scleral icterus. No injection or drainage. Fundi not examined. ENT: Hearing grossly normal. Nose without bleeding or purulent drainage. Throat without visible erythema, exudates, masses, or lesions. NECK: Trachea midline. Stiff but nontender. No palpable thyroid enlargement or nodularity. CARDIOVASCULAR: Regular rate and rhythm without murmurs, gallops, or rubs. No JVD. Peripheral pulses symmetric. RESPIRATORY/CHEST: Symmetric, unlabored respirations. Clear to auscultation. Breath sounds equal bilaterally. No wheezes, rales, or rhonchi. GASTROINTESTINAL: Abdomen soft, non-tender, nondistended. No hepato-splenomegaly , or palpable masses. No guarding. Bowel sounds present. GENITOURINARY: Without palpable bladder distension. MUSCULOSKELETAL: Extremities without clubbing, cyanosis, or edema. No joint tenderness or effusion noted. No calf tenderness. No mottling or clubbing. LYMPHATICS: No palpable cervical or supraclavicular adenopathy. NEUROLOGICAL: Lethargic, but arousable Naswers questions intermittentrly, confused, but speech is clear Follows commands with generalysed decreased strengh. Moves all extremities. Notice to move purposefully RUE against gravity to move dislodges nasal canula PSYCHIATRIC: unable to assess, too lethargic Laboratory Laboratory Tests Test 10/03/16 06:12 White Blood Count 10.8 Red Blood Count 3.98 Hemoglobin 12.7 Hematocrit 37.2 Mean Corpuscular Volume 93.7 Mean Corpuscular Hemoglobin 31.8 Mean Corpuscular Hemoglobin 34.0 Concent Red Cell Distribution Width 13.5 Platelet Count 172 Mean Platelet Volume 9.8 Neutrophils (%) (Auto) 82.6 Lymphocytes (%) (Auto) 3.7 Monocytes (%) (Auto) 13.2 Eosinophils (%) (Auto) 0.2 Basophils (%) (Auto) 0.3 Neutrophils # (Auto) 8.9 Lymphocytes # (Auto) 0.4 Monocytes # (Auto) 1.4 Eosinophils # (Auto) 0.0 Basophils # (Auto) 0.0 CBC Comment DIFF FINAL Differential Comment Sodium Level 141 Potassium Level 3.7 Chloride Level 108 Carbon Dioxide Level 22.4 Anion Gap 11 Blood Urea Nitrogen 16 Creatinine 0.79 Estimat Glomerular Filtration 94 Rate Random Glucose 112 Calcium Level 8.3 Result Diagram: 10/03/16 0612 10/03/16 0612 Imaging Last Impressions Brain MRI 10/02/16 0000 Signed Impressions: Service Date/Time: September 12:09 - CONCLUSION: 1. No acute intracranial abnormality. 2. Atrophy and chronic small vessel ischemic change. 3. Area of encephalomalacia within the right occipital lobe. 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 autoimmune, paraneoplastic or other) Travel hx to [place] in June w/o known tick exposure, but raises concern for possible Lyme dz exposure - I think LP in this setting will definetely help to exclude unusual INJECTION PRESS OPERATOR infx - Recommend CSF analysis with cell count and diff, cultures including AFB and fungal and with additional test including Lyme dz serologies and other rec's to follow based on initial findings Discussed Condition With family at b/s Cristina Ortiz MD Oct 03, 2016 20:21
[2016-10-03 23:35] VITALS: BP 190/100; PULSE 68; RESP 18; TEMP 98; O2SAT 95
[2016-10-03] MEDS: ENALAPRILAT 1.25 MG/ML VIAL IV PUSH PRN (23:50)
[2016-10-04] VITALS (7 sets, daily range): BP systolic 135–175; BP diastolic 81–97; PULSE 73–108; RESP 17–22; TEMP 98–99.6; O2SAT 91–97
[2016-10-04 04:12] LABS: INTERNATIONAL NORMALIZED RATIO 1.6 RATIO; PROTHROMBIN TIME - PATIENT 18.5 SEC (9.8-11.6)
--- NOTE | 2016-10-04 07:55 | HHI.PR ---
Subjective Remarks Patient seen in follow up for generalized weakness, HTN, afib. He admits to feeling confused this morning. He did not know where he was initially. He knew the year. Still having some neck stiffness but he could not elaborate. Objective Vitals Vital Signs Date Time Temp Pulse Resp B/P Pulse Ox O2 Delivery O2 Flow Rate FiO2 10/04/16 07:51 98.2 108 19 135/85 91 10/04/16 03:44 98.0 88 17 161/87 97 10/03/16 23:35 98.0 68 18 190/100 95 10/03/16 15:04 98.8 71 18 144/87 97 10/03/16 12:00 98.6 76 18 152/84 93 10/03/16 07:56 97.8 104 21 181/90 96 Result Diagram: 10/03/16 0612 10/03/16 0612 Imaging Last Impressions Brain MRI 10/02/16 0000 Signed Impressions: Service Date/Time: September 12:09 - CONCLUSION: 1. No acute intracranial abnormality. 2. Atrophy and chronic small vessel ischemic change. 3. Area of encephalomalacia within the right occipital lobe. Munir Cui Jr., MD Objective Remarks GENERAL: Patient is a well-nourished, well-developed patient, in no apparent distress. ENT: Bilateral conjunctiva erythema. Left is worse. Bilateral yellow crusting. No nasal drainage. Throat is clear. CARDIOVASCULAR: Regular rate and rhythm without murmurs, gallops, or rubs. RESPIRATORY: Clear to auscultation. Breath sounds equal bilaterally. No wheezes , rales, or rhonchi. GASTROINTESTINAL: Abdomen soft, non-tender, nondistended. Normal active bowel sounds MUSCULOSKELETAL: Extremities without clubbing, cyanosis, or edema. NEURO: Alert. Oriented to self, year and month only. Occasionally confused but follow most commands. Strength 5/5 on the left upper and lower extremities. 4+/ 5 on the right. PSYCH: Appear calm. A/P Problem List: (1) Weakness ICD Code: R53.1 Status: Acute (2) Dehydration ICD Code: E86.0 Status: Acute (3) A-fib ICD Code: I48.91 Status: Acute (4) HTN (hypertension) ICD Code: I10 Status: Acute Assessment and Plan 81-year-old male with encephalopathy and generalized weakness of unknown etiology. Encephalopathy: Brain MRI 10/02/16 with no acute process. EEG 10/02/16 with finding of basic generalized slowing in the theta range consistent with a mild encephalopathy versus drowsiness. Continue to follow with serial neuro exam. Frequent re orientation. Generalized Weakness: progressive upper and lower extremity weakness x1 wk w/ associated neck stiffness, no recent viral infection. S/p eval by Dr. Lee Hicks, sent for outpatient MRI C-Spine, reportedly normal and referred to ER for further evaluation. CT [facility] also [facility]. Neurology as well as orthopedic surgery consulted and evaluated patient. Infectious disease following. Infection less likely. Per ID recs will order LP, INR now less than 1.8. Obtain CSF studies/cultures/cytology and Lyme ab. - [facility], Dr. Dimas. INR needs to be <1.5. Will give Vitamin K today with plan for LP tomorrow. - Apparently patient was independent prior to his current illness. Per PT, he needs assistance and currently require rehab. - Ruling out WASTE RECYCLER lyme disease. Hold off on antibiotics until proper cultures are obtained. ID following. Conjunctivitis: Will obtain eye culture for now. Appreciate ID input. A-fib: Chronic. Coumadin on hold for LP. HTN: Labile BP, Continue Lopressor 50 mg by mouth every 12H, Vasotec when necessary DVT Prophylaxis: SCD/Teds. Discharge Planning Patient requires further workup and will need placement to a SNF. Admit to inpatient. Isabella Mireles MD Oct 04, 2016 07:55
[2016-10-04] MEDS ORDERED: PHYTONADIONE 5 MG TAB PO SCH (09:30)
[2016-10-04] MEDS: SODIUM CHLORIDE 0.9% FLUSH 5 ML FLUSH FLUSH SCH ×2 (10:13→20:55)
[2016-10-04] MEDS: PRAVASTATIN SOD 20 MG TAB PO SCH (10:14)
[2016-10-04] MEDS: SODIUM CHLOR 0.9% 1000 ML INJ 1,000 ML IV SCH ×2 (10:14→20:55)
[2016-10-04] MEDS: METOPROLOL TARTRATE 50 MG TAB PO SCH ×2 (14:51→20:55)
[2016-10-04] MEDS: MORPHINE SULFATE 4 MG/ML INJ IV PRN (18:48)
[2016-10-04] MEDS: ENALAPRILAT 1.25 MG/ML VIAL IV PUSH PRN (20:55)
[2016-10-04] MEDS: SODIUM CHLORIDE 0.9% FLUSH 5 ML FLUSH FLUSH PRN (20:55)
[2016-10-05] MEDS: SODIUM CHLORIDE 0.9% FLUSH 5 ML FLUSH FLUSH PRN ×2 (00:15→06:17)
[2016-10-05] MEDS: MORPHINE SULFATE 4 MG/ML INJ IV PRN ×3 (00:16→20:05)
[2016-10-05 03:38] VITALS: BP 165/92; PULSE 77; RESP 19; TEMP 98.9; O2SAT 93
[2016-10-05 04:23] LABS: HEMATOCRIT 36.2 % (39.0-51.0); MEAN CELL VOLUME 92.5 FL (80.0-100.0); MEAN CORPUSCULAR HEMOGLOBIN 31.8 PG (27.0-34.0); MEAN CORPUSCULAR HGB CONC 34.4 % (32.0-36.0); PLATELET COUNT 202 TH/MM3 (150-450); RED BLOOD COUNT 3.92 MIL/MM3 (4.50-5.90); RED CELL DISTRIBUTION WIDTH 13.1 % (11.6-17.2); REVIEW FLAG FINAL; WHITE BLOOD COUNT 10.5 TH/MM3 (4.0-11.0)
[2016-10-05 04:42] LABS: BICARBONATE 25.9 MEQ/L (21.0-32.0)
[2016-10-05 04:48] LABS: INTERNATIONAL NORMALIZED RATIO 1.3 RATIO; PROTHROMBIN TIME - PATIENT 14.3 SEC (9.8-11.6)
[2016-10-05] MEDS: SODIUM CHLOR 0.9% 1000 ML INJ 1,000 ML IV SCH ×2 (06:17→15:22)
[2016-10-05 08:05] VITALS: BP 142/80; PULSE 77; RESP 18; TEMP 99.4; O2SAT 96
[2016-10-05] MEDS: PRAVASTATIN SOD 20 MG TAB PO SCH (08:28)
[2016-10-05] MEDS: METOPROLOL TARTRATE 50 MG TAB PO SCH ×2 (08:28→20:05)
[2016-10-05] MEDS: SODIUM CHLORIDE 0.9% FLUSH 5 ML FLUSH FLUSH SCH ×2 (08:29→20:03)
--- NOTE | 2016-10-05 09:00 | HHI.PR ---
Subjective Remarks Patient is more alert this morning per family. Still have some confusion about how long he has been in the hospital. He knows the year and the date. Still with persistent generalized weakness, right worse than left. Objective Vitals Vital Signs Date Time Temp Pulse Resp B/P Pulse Ox O2 Delivery O2 Flow Rate FiO2 10/05/16 08:05 99.4 77 18 142/80 96 10/05/16 03:38 98.9 77 19 165/92 93 10/04/16 23:58 99.2 74 20 173/97 93 10/04/16 21:00 76 93 10/04/16 20:20 99.4 78 20 175/81 94 10/04/16 18:57 20 10/04/16 16:08 99.6 73 18 153/91 96 10/04/16 11:37 99.5 76 22 153/89 93 Result Diagram: 10/05/1633510/05/16335 Objective Remarks GENERAL: Patient is a well-nourished, well-developed patient, in no apparent distress. ENT: Bilateral conjunctiva erythema improved. No nasal drainage. Throat is clear. CARDIOVASCULAR: Regular rate and rhythm without murmurs, gallops, or rubs. RESPIRATORY: Clear to auscultation. Breath sounds equal bilaterally. No wheezes , rales, or rhonchi. GASTROINTESTINAL: Abdomen soft, non-tender, nondistended. Normal active bowel sounds MUSCULOSKELETAL: Extremities without clubbing, cyanosis, or edema. NEURO: Alert. Oriented to self, year and month only. Occasionally confused but follow most commands. Strength 5/5 on the left upper and lower extremities. 4+/ 5 on the right. PSYCH: Appear calm. A/P Problem List: (1) Weakness ICD Code: R53.1 Status: Acute (2) Dehydration ICD Code: E86.0 Status: Acute (3) A-fib ICD Code: I48.91 Status: Acute (4) HTN (hypertension) ICD Code: I10 Status: Acute Assessment and Plan 81-year-old male with encephalopathy and generalized weakness of unknown etiology. Encephalopathy: Brain MRI 10/02/16 with no acute process. EEG 10/02/16 with finding of basic generalized slowing in the theta range consistent with a mild encephalopathy versus drowsiness. Continue to follow with serial neuro exam. Frequent re-orientation. Generalized Weakness: progressive upper and lower extremity weakness x1 wk w/ associated neck stiffness, no recent viral infection. S/p eval by Dr. Lee Hicks, sent for outpatient MRI C-Spine, reportedly normal and referred to ER for further evaluation. CT Head/C[facility]Spine at [facility] also reportedly negative. Neurology as well as orthopedic surgery consulted and evaluated patient. Infectious disease following. Infection less likely. Per ID recs LP ordered, will be done today. Obtain CSF studies/cultures/cytology and Lyme ab. - Apparently patient was independent prior to his current illness. Per PT, he needs assistance and currently require rehab. - Ruling out SANITATION MANAGER lyme disease. Hold off on antibiotics until proper cultures are obtained. ID following. Conjunctivitis: Improving, ? if infectious. Eye culture pending. Appreciate ID input. A-fib: Chronic. Coumadin on hold for LP today. HTN: Labile BP, Continue Lopressor 50 mg by mouth every 12H, Vasotec when necessary DVT Prophylaxis: SCD/Teds. Discharge Planning Patient will need rehab once workup and treatment is complete. Isabella Mireles MD Oct 05, 2016 09:00
--- NOTE | 2016-10-05 11:25 | PD.RAD ---
Post Procedure Progress Note Pre Procedure Diagnosis: (1) Weakness Post Procedure Diagnosis: (1) Weakness Procedure Date: Oct 05, 2016 Supervising Radiologist: Da Dimas Anesthesia: Local Plan of Activity Patient to Unit: Nursing Unit Patient Condition: Poor Additional Comments: LP completed. Single puncture at L4 Opening pressure 23 23cc of clear csf collected See PACS Report for procedural detail/treatment Da Dimas MD Oct 05, 2016 11:25
[2016-10-05 12:44] LABS: CSF LYMPHOCYTES 0 %; CSF NEUTROPHILS 0 %; GROSS BLOOD TUBE #1 0 (0); GROSS BLOOD TUBE #2 0 (0); GROSS BLOOD TUBE #3 0 (0); GROSS BLOOD TUBE #4 0 (0); SUPERNATE COLOR TUBE #1 CLEAR (CLEAR); SUPERNATE COLOR TUBE #2 CLEAR (CLEAR); SUPERNATE COLOR TUBE #3 CLEAR (CLEAR); SUPERNATE COLOR TUBE #4 CLEAR (CLEAR); VOLUME TUBE # 1 4.8 ML; VOLUME TUBE # 3 5.4 ML; VOLUME TUBE # 4 5.9 ML; WBC TUBE #4 0 /MM3 (0-10)
[2016-10-05] MEDS: ACETAMINOPHEN/HYDROcodone 325 MG/5 MG TAB PO PRN (13:59)
--- NOTE | 2016-10-05 15:20 | RADRPT ---
EXAM DATE/TIME: 10/05/2016 14:36 [facility] COMPARISON: No previous studies available for comparison. INDICATIONS : Right knee swelling. No known trauma. MEDICAL HISTORY : None. SURGICAL HISTORY : None. ENCOUNTER: Initial ACUITY: 1 day PAIN SCORE: Non-responsive. LOCATION: Right knee. FINDINGS: 2 views of the right knee. Bone alignment within normal limits. No evidence of fracture. Large knee joint effusion. Minimal tricompartmental osteophytes. Mild medial compartment narrowing. CONCLUSION: 1. Large joint effusion. 2. No evidence of fracture. 3. Osteoarthritic findings with minimal tract are normal osteophytes and mild medial compartment narr owing. Irving Romero MD on October 05, 2016 at 15:17 Board Certified Radiologist. This report was verified electronically.
[2016-10-05 16:55] VITALS: BP 174/80; PULSE 75; RESP 20; O2SAT 95
[2016-10-05] MEDS: ENALAPRILAT 1.25 MG/ML VIAL IV PUSH PRN (17:32)
--- NOTE | 2016-10-05 18:23 | RADRPT ---
EXAM DATE/TIME: 10/05/2016 16:27 [facility] COMPARISON: No previous studies available for comparison. INDICATIONS : Right leg swelling. MEDICAL HISTORY : Hypercholesterolemia. A-fib. SURGICAL HISTORY : Right rotator cuff repair. ENCOUNTER: Initial ACUITY: 1 day PAIN SCORE: Non-responsive LOCATION: Right leg. TECHNIQUE: Venous ultrasound of the leg was performed from the inguinal ligament to the proximal calf. Real-amaya e, color Doppler and spectral tracing, compression and augmentation techniques were used. FINDINGS: There is normal compressibility of the deep venous system from the inguinal region to the proximal ca lf. No echogenic clot is seen in the lumen of the common femoral, femoral, popliteal, and posterior tibial veins. There is a normal response of the venous system to proximal and distal augmentation an d respiration. CONCLUSION: Normal examination. Bob Neal MD on October 05, 2016 at 18:21 Board Certified Radiologist. This report was verified electronically.
[2016-10-05 19:33] VITALS: BP 176/91; PULSE 75; RESP 18; TEMP 97.6; O2SAT 97
[2016-10-06] VITALS: BP 147/82; PULSE 87; RESP 18; TEMP 98; O2SAT 97
[2016-10-06] MEDS: MORPHINE SULFATE 4 MG/ML INJ IV PRN (00:47)
[2016-10-06 04:28] LABS: INTERNATIONAL NORMALIZED RATIO 1.2 RATIO; PROTHROMBIN TIME - PATIENT 13.6 SEC (9.8-11.6)
[2016-10-06 04:42] LABS: BICARBONATE 25.2 MEQ/L (21.0-32.0)
[2016-10-06] MEDS: ACETAMINOPHEN/HYDROcodone 325 MG/5 MG TAB PO PRN ×2 (05:09→22:44)
[2016-10-06] MEDS: SODIUM CHLOR 0.9% 1000 ML INJ 1,000 ML IV SCH ×3 (05:10→23:05)
[2016-10-06 05:13] VITALS: BP 170/97; PULSE 80; RESP 18; TEMP 98; O2SAT 97
[2016-10-06] MEDS: ENALAPRILAT 1.25 MG/ML VIAL IV PUSH PRN (05:21)
[2016-10-06 06:25] LABS: HEMATOCRIT 37.7 % (39.0-51.0); MEAN CELL VOLUME 91.8 FL (80.0-100.0); MEAN CORPUSCULAR HEMOGLOBIN 32.2 PG (27.0-34.0); PLATELET COUNT 197 TH/MM3 (150-450); RED CELL DISTRIBUTION WIDTH 12.8 % (11.6-17.2); REVIEW FLAG FINAL; WHITE BLOOD COUNT 10.4 TH/MM3 (4.0-11.0)
--- NOTE | 2016-10-06 07:20 | PD.ORT.PN ---
Subjective Subjective Remarks pt has no complaints of neck pain or significant stiffness pt mild to moderately confused chart was reviewed Objective Vitals Vital Signs Date Time Temp Pulse Resp B/P Pulse Ox O2 Delivery O2 Flow Rate FiO2 10/06/16 05:13 98.0 80 18 170/97 97 10/06/16 00:00 98.0 87 18 147/82 97 10/05/16 19:33 97.6 75 18 176/91 97 10/05/16 16:55 75 20 174/80 95 10/05/16 08:05 99.4 77 18 142/80 96 I/O 10/05/16 10/05/16 10/05/16 10/06/16 10/06/16 10/06/16 07:00 15:00 23:00 07:00 15:00 23:00 Intake Total 2328 ml Balance 2328 ml Intake IV Total 2328 ml Result Diagram: 10/06/16 0358 10/06/16 0358 Other Results Laboratory Tests Test 10/06/16 03:58 Prothrombin Time 13.6 SEC (9.8-11.6) Prothromb Time International 1.2 RATIO Ratio Objective Remarks seen by Dr. Lee Hicks Minimal neck tenderness No focal neuro deficits Patient confused,disoriented Assessment & Plan Assessment and Plan Ortho stable lumbar puncture results pending continue medical management of mental status change will see Darline Stroud Oct 06, 2016 07:20
[2016-10-06 07:39] VITALS: BP 162/93; PULSE 100; RESP 17; TEMP 98.4; O2SAT 92
[2016-10-06] MEDS: METOPROLOL TARTRATE 50 MG TAB PO SCH ×2 (09:38→21:44)
[2016-10-06] MEDS: PRAVASTATIN SOD 20 MG TAB PO SCH (09:38)
[2016-10-06] MEDS: SODIUM CHLORIDE 0.9% FLUSH 5 ML FLUSH FLUSH SCH ×2 (09:39→21:00)
--- NOTE | 2016-10-06 11:39 | HHI.PR ---
Subjective Remarks c/o?h/a but stated its in the neck area not turning his head left or right also right knee pain. Objective Vital Signs Date Time Temp Pulse Resp B/P Pulse Ox O2 Delivery O2 Flow Rate FiO2 10/06/16 07:39 98.4 100 17 162/93 92 10/06/16 05:13 98.0 80 18 170/97 97 10/06/16 00:00 98.0 87 18 147/82 97 10/05/16 19:33 97.6 75 18 176/91 97 10/05/16 16:55 75 20 174/80 95 I/O 10/05/16 10/05/16 10/05/16 10/06/16 10/06/16 10/06/16 07:00 15:00 23:00 07:00 15:00 23:00 Intake Total 2328 ml Balance 2328 ml Intake IV Total 2328 ml awake and alert flandreau confused perrla motor ue intact no hoffmans dtrs 2+UE 2 -3 + le right knee swollen warm=effusion with pain on palpation and ROM toes w/d Result Diagram: 10/06/16 0358 10/06/16 0358 Imaging brain mri neg for acute inf. will rpeat c spine xray right knee effusion LP mildly elevated protein neg rest so far esr crp elevated. Assessment and Plan Assessment and Plan cervicogenic pain -check repeat mri c spine w/wo -solumedrol 125mg x1 dose then would continue prednisone 30mg qd and titrate down if it is helping his pain. -ortho for right knee. -repeat esr/crp after steroids. Alida Scott MD Oct 06, 2016 11:39
[2016-10-06 11:51] VITALS: BP 131/80; PULSE 69; RESP 19; TEMP 98.4; O2SAT 94
[2016-10-06] MEDS ORDERED: methylPREDNISolone SOD SUCC 125 MG/2 ML VIAL IV PUSH ONE (12:00)
--- NOTE | 2016-10-06 14:35 | HHI.PR ---
Subjective Remarks Patient still having stiff neck per his . R knee swelling is unchanged. He is still weak with no improvement in his symptoms. Patient is having diffuse joint pain including wrist and knees bilaterally. Objective Vitals Vital Signs Date Time Temp Pulse Resp B/P Pulse Ox O2 Delivery O2 Flow Rate FiO2 10/06/16 11:51 98.4 69 19 131/80 94 10/06/16 07:39 98.4 100 17 162/93 92 10/06/16 05:13 98.0 80 18 170/97 97 10/06/16 00:00 98.0 87 18 147/82 97 10/05/16 19:33 97.6 75 18 176/91 97 10/05/16 16:55 75 20 174/80 95 I/O 10/05/16 10/05/16 10/05/16 10/06/16 10/06/16 10/06/16 07:00 15:00 23:00 07:00 15:00 23:00 Intake Total 2328 ml Balance 2328 ml Intake IV Total 2328 ml Result Diagram: 10/06/16 0358 10/06/16 0358 Objective Remarks GENERAL: Patient is a well-nourished, well-developed patient, in no apparent distress. HEAD: Occipital area with a quater size lump. ENT: Bilateral conjunctiva erythema improved. No nasal drainage. Throat is clear. CARDIOVASCULAR: Regular rate and rhythm without murmurs, gallops, or rubs. RESPIRATORY: Clear to auscultation. Breath sounds equal bilaterally. No wheezes , rales, or rhonchi. GASTROINTESTINAL: Abdomen soft, non-tender, nondistended. Normal active bowel sounds MUSCULOSKELETAL: Tenderness motion of the wrist and bilateral knees. There is notable effusion of the right knee. NEURO: Alert. Oriented to self, year and month only. Occasionally confused but follow most commands. Strength 5/5 on the left upper and lower extremities. 4+/ 5 on the right. PSYCH: Appear calm. A/P Problem List: (1) Weakness ICD Code: R53.1 Status: Acute (2) Dehydration ICD Code: E86.0 Status: Acute (3) A-fib ICD Code: I48.91 Status: Acute (4) HTN (hypertension) ICD Code: I10 Status: Acute (5) Joint pain ICD Code: M25.50 Status: Acute Assessment and Plan 81-year-old male with encephalopathy and generalized weakness of unknown etiology. Encephalopathy: Brain MRI 10/02/16 with no acute process. EEG 10/02/16 with finding of basic generalized slowing in the theta range consistent with a mild encephalopathy versus drowsiness. Continue to follow with serial neuro exam. Frequent re-orientation. - Appreciate neurology following. Repeat cervical spine CT. Agree with trial of Solumedrol. Will continue and monitor response. Generalized Weakness: progressive upper and lower extremity weakness x1 wk w/ associated neck stiffness prior to admission, no recent viral infection. S/p eval by Dr. Lee Hicks, sent for outpatient MRI C-Spine, reportedly normal and referred to ER for further evaluation. CT Head/C-Spine at [facility] also reportedly negative. Neurology as well as orthopedic surgery following. Infectious disease following. Infection less likely. S/P LP. CSF studies/ cultures/cytology and Lyme ab. - Apparently patient was independent prior to his current illness. Per PT, he needs assistance and currently require rehab. - Ruling out [employer] lyme disease. DW ID, continue to hold antibiotics. Orthopedics to aspirate knee effusion - Differential include unspecified autoimmune disorder, connective tissue disorder or para neoplastic syndrome. Agree with trial of steroids. I will continue Solumedrol and monitor response. He may benefit from a rheumatologic workup outpatient. Diffuse joint pain: Involving the wrist and knee. There is a right knee effusion. No history of trauma. X-ray negative for fractures. - Orthopedics will evaluate and plan to aspirate the right knee. Conjunctivitis: Resolved. Eye cultures negative. Lump in occipital area: Discussed with radiology who reviewed his MRI and its most consistent with a sebaceous cyst. A-fib: Chronic. Coumadin on hold. Will have Knee aspiration and injection today. Plan to resume tomorrow if no other planned procedures. HTN: Labile BP, Continue Lopressor 50 mg by mouth every 12H, Vasotec when necessary DVT Prophylaxis: SCD/Teds. Discharge Planning Patient will need rehab once workup and treatment completed. Isabella Mierles MD Oct 06, 2016 14:35
--- NOTE | 2016-10-06 15:32 | PD.ORT.PN ---
Subjective Subjective Remarks got called about patient due to right knee effusion according to the son, the patient developed right knee pain and effusion yesterday No c/o neck pain,c/o neck stiffness Patient confused Objective Vitals Vital Signs Date Time Temp Pulse Resp B/P Pulse Ox O2 Delivery O2 Flow Rate FiO2 10/06/16 11:51 98.4 69 19 131/80 94 10/06/16 07:39 98.4 100 17 162/93 92 10/06/16 05:13 98.0 80 18 170/97 97 10/06/16 00:00 98.0 87 18 147/82 97 10/05/16 19:33 97.6 75 18 176/91 97 10/05/16 16:55 75 20 174/80 95 I/O 10/05/16 10/05/16 10/05/16 10/06/16 10/06/16 10/06/16 06:59 14:59 22:59 06:59 14:59 22:59 Intake Total 2328 ml Balance 2328 ml Intake IV Total 2328 ml Result Diagram: 10/06/16 0358 10/06/16 0358 Other Results Laboratory Tests Test 10/06/16 03:58 Prothrombin Time 13.6 SEC (9.8-11.6) Prothromb Time International 1.2 RATIO Ratio Objective Remarks right knee moderate effusion, no significant tenderness mild restricted ROM patient somewhat less confused than this morning Minimal neck tenderness No focal neuro deficits Assessment & Plan Assessment and Plan x-rays were reviewed which showed moderate knee effusion, moderate medial compartment seen on lateral view, no acute bony changes seen under sterile procedure, right knee aspirated 60 cc of mildly turbid synovial fluid which was sent for synovial fluid analysis including crystals, aerobic and anaerobic C&S and fungal smear and cx Ortho stable lumbar puncture results pending continue medical management of mental status change will see Lee Paul MD Oct 06, 2016 15:31
[2016-10-06] MEDS ORDERED: LIDOCAINE HCL 1% PF 2 ML VIAL OTHER ONE (16:00)
[2016-10-06] MEDS ORDERED: GADODIAMIDE PF 287 MG/ML 20 ML VIAL (for RAD MRI) IV ONE (18:50)
[2016-10-06 19:19] LABS: WBC, SYNOVIAL FLUID 2610 /MM3 (0-200)
[2016-10-06 20:00] VITALS: BP 166/84; PULSE 70; RESP 18; TEMP 97.6; O2SAT 93
--- NOTE | 2016-10-06 20:20 | RADRPT ---
EXAM DATE/TIME: 10/06/2016 18:18 [facility] COMPARISON: No previous studies available for comparison. INDICATIONS : Weakness. CONTRAST: 20 cc Omniscan (gadodiamide) IV MEDICAL HISTORY : Hypertension. Hypercholesterolemia. SURGICAL HISTORY : Skin cancer left arm. ENCOUNTER: Initial ACUITY: 1 day PAIN SCORE: 2/10 LOCATION: Neck. TECHNIQUE: Multiplanar, multisequence MRI examination of the cervical spine was performed. FINDINGS: No fracture or subluxation demonstrated of the cervical spine. Small fluid is seen in the retropharyn geal space from C1-C5 with associated enhancement. The fluid is only a few millimeters in maximal thi ckness. Synovitis and reactive appearing enhancement seen at C1/C2 and the craniocervical junction. T he enhancement includes the epidural space and foramina. C2/C3: The disc is desiccated but without significant loss of height. There is right-sided predominant uncov ertebral and facet osteoarthritis with mild right foraminal stenosis. C3/C4: The disc is desiccated. There is a small, broad posterior disc osteophyte complex and moderate bilate ral uncovertebral and facet osteoarthritis. There is mild spinal stenosis and mild right foraminal en croachment C4/C5: Disc is desiccated and has moderate loss of height. There is a moderate right paracentral disc protru jaqui right greater than left uncovertebral and facet osteoarthritis. There is mild spinal stenosis an d mild right foraminal encroachment. C5/C6: Disc is desiccated and has severe loss of height. There is a moderate posterior disc osteophyte compl ex and bilateral uncovertebral and facet osteoarthritis. There is moderate right and mild left forami nal stenosis Also moderate spinal stenosis with short segment cord compression. No cord signal abnorm ality. C6/C7: The disc is desiccated and has severe loss of height. There is a small, broad posterior disc osteophy te complex and moderate bilateral uncovertebral and facet osteoarthritis. There is mild spinal stenos is and mild to moderate bilateral foraminal stenosis. C7/T1: There is bulging of the disc annulus and mild bilateral facet osteoarthritis. No significant foramina l or spinal stenosis. CONCLUSION: 1. Inflammatory changes of the craniocervical junction and upper cervical spine as above including sy novitis and reactive appearing enhancement of the articulations, mild epidural enhancement and a sliv er of fluid in the retropharyngeal space. These findings are nonspecific. I don't see a drainable abs cess. Differential would include craniocervical and/or atlantoaxial inflammatory arthropathy such as rheumatoid. 2. Otherwise degenerative changes as above. Associated moderate, chronic recurring spinal stenosis at C5/C6 and mild to moderate degrees of multilevel foraminal encroachment.. Behzad Davis MD on October 06, 2016 at 20:00 Board Certified Radiologist. This report was verified electronically.
[2016-10-06] MEDS: methylPREDNISolone SOD SUCC 40 MG/1 ML VIAL IV PUSH SCH (21:43)
[2016-10-06] MEDS: SODIUM CHLORIDE 0.9% FLUSH 5 ML FLUSH FLUSH PRN (21:44)
[2016-10-07] VITALS: BP 144/75; PULSE 82; RESP 20; TEMP 98.2; O2SAT 97
[2016-10-07 04:00] VITALS: BP 165/89; PULSE 69; RESP 20; TEMP 98.1; O2SAT 96
--- NOTE | 2016-10-07 07:21 | PD.ORT.PN ---
Subjective Subjective Remarks No c/o neck pain,no c/o neck stiffness.Patient on steriods No c/o R knee pain Patient less confused Objective Vitals Vital Signs Date Time Temp Pulse Resp B/P Pulse Ox O2 Delivery O2 Flow Rate FiO2 10/07/16 04:00 98.1 69 20 165/89 96 10/07/16 00:00 98.2 82 20 144/75 97 10/06/16 20:00 97.6 70 18 166/84 93 10/06/16 11:51 98.4 69 19 131/80 94 10/06/16 07:39 98.4 100 17 162/93 92 I/O 10/06/16 10/06/16 10/06/16 10/07/16 10/07/16 10/07/16 07:00 15:00 23:00 07:00 15:00 23:00 Output Total 900 ml Balance -900 ml Output Urine Total 900 ml # Bowel Movements 3 Result Diagram: 10/06/16 0358 10/06/16 0358 Objective Remarks right knee minimal effusion, no significant tenderness mild restricted ROM patient less confused than yesterday Minimal neck tenderness No focal neuro deficits Assessment & Plan Assessment and Plan x-rays were reviewed which showed moderate knee effusion, moderate medial compartment seen on lateral view, no acute bony changes seen R knee synovial fluid anaylsis is not c/w infection or crystal arthropathy Ortho stable lumbar puncture results pending continue medical management of mental status change OOB with assistance;PT for assistive ambulation Lee Hicks MD Oct 07, 2016 07:21
[2016-10-07 08:00] VITALS: BP 160/91; PULSE 85; RESP 20; TEMP 95.8; O2SAT 93
[2016-10-07 08:11] LABS: BICARBONATE 24.7 MEQ/L (21.0-32.0); POTASSIUM 3.9 MEQ/L (3.5-5.1)
[2016-10-07 08:13] LABS: HEMATOCRIT 38.9 % (39.0-51.0); MEAN CELL VOLUME 93.7 FL (80.0-100.0); MEAN CORPUSCULAR HEMOGLOBIN 31.1 PG (27.0-34.0); MEAN CORPUSCULAR HGB CONC 33.2 % (32.0-36.0); PLATELET COUNT 232 TH/MM3 (150-450); RED BLOOD COUNT 4.15 MIL/MM3 (4.50-5.90); REVIEW FLAG FINAL
[2016-10-07 08:46] LABS: WESTERGREN SEDIMENTATION RATE 64 mm/hr (0-20)
[2016-10-07] MEDS: methylPREDNISolone SOD SUCC 40 MG/1 ML VIAL IV PUSH SCH (09:24)
[2016-10-07] MEDS: METOPROLOL TARTRATE 50 MG TAB PO SCH ×2 (09:26→20:11)
[2016-10-07] MEDS: PRAVASTATIN SOD 20 MG TAB PO SCH (09:26)
[2016-10-07 12:30] VITALS: BP 117/72; PULSE 82; RESP 20; TEMP 95.5; O2SAT 95
--- NOTE | 2016-10-07 13:08 | HHI.PR ---
Subjective Remarks Much improved today. He is ambulating with a walker. Mental status at baseline. Reports that he is feeling stronger with less pain. Objective Vitals Vital Signs Date Time Temp Pulse Resp B/P Pulse Ox O2 Delivery O2 Flow Rate FiO2 10/07/16 12:30 95.5 82 20 117/72 95 10/07/16 08:00 95.8 85 20 160/91 93 10/07/16 04:00 98.1 69 20 165/89 96 10/07/16 00:00 98.2 82 20 144/75 97 10/06/16 20:00 97.6 70 18 166/84 93 I/O 10/06/16 10/06/16 10/06/16 10/07/16 10/07/16 10/07/16 07:00 15:00 23:00 07:00 15:00 23:00 Output Total 900 ml Balance -900 ml Output Urine Total 900 ml # Bowel Movements 3 Result Diagram: 10/07/1670110/07/16701 Imaging Last Impressions Cervical Spine MRI 10/06/16 0000 Signed Impressions: Service Date/Time: Thursday, October 06, 2016 18:18 - CONCLUSION: 1. Inflammatory changes of the craniocervical junction and upper cervical spine as above including synovitis and reactive appearing enhancement of the articulations, mild epidural enhancement and a sliver of fluid in the retropharyngeal space. These findings are nonspecific. I don't see a drainable abscess. Differential would include craniocervical and/or atlantoaxial inflammatory arthropathy such as rheumatoid. 2. Otherwise degenerative changes as above. Associated moderate, chronic recurring spinal stenosis at C5/C6 and mild to moderate degrees of multilevel foraminal encroachment.. Behzad Davis MD Lower Extremity Ultrasound 10/05/16 0000 Signed Impressions: Service Date/Time: Wednesday, October 05, 2016 16:27 - CONCLUSION: Normal examination. Bob Neal MD Knee X-Ray 10/05/16 0000 Signed Impressions: Service Date/Time: Wednesday, October 05, 2016 14:36 - CONCLUSION: 1. Large joint effusion. 2. No evidence of fracture. 3. Osteoarthritic findings with minimal tract are normal osteophytes and mild medial compartment narrowing. Irving Romero MD Brain MRI 10/02/16 0000 Signed Impressions: Service Date/Time: September 12:09 - CONCLUSION: 1. No acute intracranial abnormality. 2. Atrophy and chronic small vessel ischemic change. 3. Area of encephalomalacia within the right occipital lobe. Munir Cui Jr., MD Objective Remarks GENERAL: Patient is a well-nourished, well-developed patient, in no apparent distress. HEAD: Occipital area with a quater size lump. ENT: Bilateral conjunctiva erythema improved. No nasal drainage. Throat is clear. CARDIOVASCULAR: Regular rate and rhythm without murmurs, gallops, or rubs. RESPIRATORY: Clear to auscultation. Breath sounds equal bilaterally. No wheezes , rales, or rhonchi. GASTROINTESTINAL: Abdomen soft, non-tender, nondistended. Normal active bowel sounds MUSCULOSKELETAL: Tenderness motion of the wrist and bilateral knees. Range of motion bilateral knees much improved. NEURO: Alert. Oriented to self, year and month only. Occasionally confused but follow most commands. Strength 5/5 on the left upper and lower extremities. 4+/ 5 on the right. PSYCH: Appear calm. A/P Problem List: (1) Weakness ICD Code: R53.1 Status: Acute (2) Dehydration ICD Code: E86.0 Status: Acute (3) A-fib ICD Code: I48.91 Status: Acute (4) HTN (hypertension) ICD Code: I10 Status: Acute (5) Joint pain ICD Code: M25.50 Status: Acute Assessment and Plan 81-year-old male with encephalopathy and generalized weakness of unknown etiology. Encephalopathy: Brain MRI 10/02/16 with no acute process. EEG 10/02/16 with finding of basic generalized slowing in the theta range consistent with a mild encephalopathy versus drowsiness. Continue to follow with serial neuro exam. Frequent re-orientation. - Appreciate neurology following. Repeat cervical spine MRI shows Inflammatory changes of the craniocervical junction and upper cervical spine as above including synovitis and reactive appearing enhancement of the articulations, mild epidural enhancement and a sliver of fluid in the retropharyngeal space. These findings are nonspecific. No drainable abscess identified. Differential would include craniocervical and/or atlantoaxial inflammatory arthropathy such as rheumatoid. 2. Otherwise degenerative changes as above. Associated moderate, chronic recurring spinal stenosis at C5/C6 and mild to moderate degrees of multilevel foraminal encroachment. - Patient appear to be responding to steroids. Will continue. Rheumatoid is certainly on the differential. Will obtain rheumatoid antibody and anti-CCP. Generalized Weakness: progressive upper and lower extremity weakness x1 wk w/ associated neck stiffness prior to admission, no recent viral infection. S/p eval by Dr. Lee Hicks, sent for outpatient MRI C-Spine, reportedly normal and referred to ER for further evaluation. CT Head[facility] at [facility] also reportedly negative. Neurology as well as orthopedic surgery following. Infectious disease following. Infection less likely. S/P LP. CSF studies/ cultures/cytology and Lyme ab. - Apparently patient was independent prior to his current illness. Per PT, he needs assistance and currently require rehab. - Ruling out [employer] lyme disease. DW ID, continue to hold antibiotics. Orthopedics to aspirate knee effusion - Differential include unspecified autoimmune disorder, connective tissue disorder or para neoplastic syndrome. He appear to be improving with steroid. Rheumatoid is a consideration in this case. Will obtain RF Ab an Anti ccp. He will likely need further rheumatologic workup outpatient. If Rheumatoid is confirmed, he would benefit from Methotrexate. - Physical therapy to evaluate. Diffuse joint pain: Involving the wrist and knee. There is a right knee effusion. No history of trauma. X-ray negative for fractures. - Orthopedics evaluated the patient and aspirated the joint. Fluid studies more consistent with an inflammatory process. Continue steroid as above. ?RA. Follow cultures. Lump in occipital area: Discussed with radiology who reviewed his MRI and its most consistent with a sebaceous cyst. A-fib: Chronic. Coumadin was on hold. Resume Coumadin. HTN: Labile BP, Continue Lopressor 50 mg by mouth every 12H, Vasotec when necessary DVT Prophylaxis: SCD/Teds. Discharge Planning Patient will need rehab vs [facility] once workup and treatment completed. Isabella Mireles MD Oct 07, 2016 13:08
[2016-10-07 13:48] LABS: RHEUMATOID FACTOR TRIGGER LESS THAN 10.0 IU/ML (0.0-14.9)
[2016-10-07 16:26] VITALS: BP 140/81; PULSE 70; RESP 20; TEMP 96; O2SAT 92
[2016-10-07] MEDS: PANTOPRAZOLE SOD 40 MG DELAYED RELEASE TAB PO SCH (16:46)
[2016-10-07] MEDS: WARFARIN SOD 5 MG TAB PO SCH (16:46)
[2016-10-07 17:28] LABS: LYME IGG IMMUNOBLOT CSF None Detected bands (None Detected); LYME IGM IMMUNOBLOT CSF None Detected bands (None Detected)
[2016-10-07 19:53] VITALS: BP 134/79; PULSE 72; RESP 18; TEMP 97.6; O2SAT 95
[2016-10-07] MEDS: SODIUM CHLORIDE 0.9% FLUSH 5 ML FLUSH FLUSH SCH (20:11)
[2016-10-07] MEDS: ACETAMINOPHEN/HYDROcodone 325 MG/5 MG TAB PO PRN (22:29)
[2016-10-07] MEDS: SODIUM CHLOR 0.9% 1000 ML INJ 1,000 ML IV SCH (22:30)
[2016-10-08 00:39] VITALS: BP 130/74; PULSE 73; RESP 18; TEMP 97.8; O2SAT 96
[2016-10-08 04:00] VITALS: BP 125/75; PULSE 53; RESP 18; TEMP 95.5; O2SAT 95
[2016-10-08 07:19] LABS: AUTOMATED NEUTROPHIL # 19.4 TH/MM3 (1.8-7.7); BASOPHIL # 0.1 TH/MM3 (0-0.2); BASOPHIL % 0.5 % (0.0-2.0); HEMATOCRIT 36.4 % (39.0-51.0); HEMO FLAGS DIFF FINAL; LYMPH % 3.3 % (9.0-44.0); LYMPHOCYTE # 0.7 TH/MM3 (1.0-4.8); MEAN CELL VOLUME 92.5 FL (80.0-100.0); MEAN CORPUSCULAR HEMOGLOBIN 30.7 PG (27.0-34.0); MEAN CORPUSCULAR HGB CONC 33.2 % (32.0-36.0); MONO % 5.9 % (0.0-8.0); NEUT % 90.3 % (16.0-70.0); PLATELET COUNT 277 TH/MM3 (150-450); RED BLOOD COUNT 3.94 MIL/MM3 (4.50-5.90); WHITE BLOOD COUNT 21.5 TH/MM3 (4.0-11.0)
--- NOTE | 2016-10-08 07:38 | RADRPT ---
EXAM DATE/TIME: 10/08/2016 06:17 [facility] COMPARISON: No previous studies available for comparison. INDICATIONS : Cough. MEDICAL HISTORY : Hypertension. Hypercholesterolemia. SURGICAL HISTORY : Skin cancer left arm. ENCOUNTER: Subsequent ACUITY: 2 days PAIN SCORE: 1/10 LOCATION: Bilateral chest FINDINGS: A single view of the chest demonstrates cardiomegaly with pulmonary vascular congestion and bilateral perihilar pulmonary edema. Osseous structures are intact. CONCLUSION: Cardiomegaly with bilateral perihilar pulmonary edema likely CHF. Cesar Tidwell MD on October 08, 2016 at 7:36 Board Certified Radiologist. This report was verified electronically.
--- NOTE | 2016-10-08 07:53 | PD.ORT.PN ---
Subjective Subjective Remarks pt states right knee pain has resolved states he is ready to go home still mildly confused Objective Vitals Vital Signs Date Time Temp Pulse Resp B/P Pulse Ox O2 Delivery O2 Flow Rate FiO2 10/08/16 04:00 95.5 53 18 125/75 95 10/08/16 00:39 97.8 73 18 130/74 96 10/07/16 19:53 97.6 72 18 134/79 95 10/07/16 16:26 96.0 70 20 140/81 92 10/07/16 12:30 95.5 82 20 117/72 95 10/07/16 08:00 95.8 85 20 160/91 93 I/O 10/07/16 10/07/16 10/07/16 10/08/16 10/08/16 10/08/16 07:00 15:00 23:00 07:00 15:00 23:00 Intake Total 720 ml 400 ml 1316 ml Output Total 900 ml 450 ml Balance -900 ml 720 ml 400 ml 866 ml Intake Oral 720 ml 400 ml Tube Feeding 1316 ml Output Urine Total 900 ml 450 ml # Voids 2 1 # Bowel Movements 3 1 Result Diagram: 10/08/16 0622 10/07/16 0702 Imaging Last 24 hours Impressions Chest X-Ray 10/08/16 0000 Signed Impressions: Service Date/Time: Saturday, October 08, 2016 06:17 - CONCLUSION: Cardiomegaly with bilateral perihilar pulmonary edema likely CHF. Cesar Tidwell MD Objective Remarks right knee effusion has resolved, good ROM with no tenderness Minimal neck tenderness No focal neuro deficits still mildly confused Assessment & Plan Assessment and Plan R knee synovial fluid anaylsis is not c/w infection or crystal arthropathy, cx negative @ 24 hrs WBC elevated at 21k this AM-- pt did receive 80 mg of steroids yesterday continue medical management of mental status change OOB with assistance;PT for assistive ambulation discharge home when medically stable Darline Romero Oct 08, 2016 07:53
[2016-10-08] MEDS: ACETAMINOPHEN/HYDROcodone 325 MG/5 MG TAB PO PRN ×3 (08:11→21:31)
[2016-10-08] MEDS: PANTOPRAZOLE SOD 40 MG DELAYED RELEASE TAB PO SCH (08:11)
[2016-10-08] MEDS: SODIUM CHLORIDE 0.9% FLUSH 5 ML FLUSH FLUSH SCH ×2 (08:11→21:20)
[2016-10-08] MEDS: METOPROLOL TARTRATE 50 MG TAB PO SCH ×2 (08:11→21:20)
[2016-10-08] MEDS: PRAVASTATIN SOD 20 MG TAB PO SCH (08:12)
[2016-10-08 08:30] VITALS: BP 159/88; PULSE 72; RESP 18; TEMP 96.5; O2SAT 97
[2016-10-08] MEDS ORDERED: FUROSEMIDE 40 MG/4 ML VIAL IV PUSH ONE (08:45)
--- NOTE | 2016-10-08 11:21 | HHI.PR ---
Subjective Remarks Patient feeling stronger overall. Discussed with his and son at bedside. He is ambulating with the help of a walker. Discussed with physical therapy will reevaluate him again today. Still on 2 L nasal cannula. A chest x-ray this morning concerning for pulmonary edema and cardiomegaly. He denies any history of CHF. Objective Vitals Vital Signs Date Time Temp Pulse Resp B/P Pulse Ox O2 Delivery O2 Flow Rate FiO2 10/08/16 09:11 18 10/08/16 08:30 96.5 72 18 159/88 97 10/08/16 04:00 95.5 53 18 125/75 95 10/08/16 00:39 97.8 73 18 130/74 96 10/07/16 19:53 97.6 72 18 134/79 95 10/07/16 16:26 96.0 70 20 140/81 92 10/07/16 12:30 95.5 82 20 117/72 95 I/O 10/07/16 10/07/16 10/07/16 10/08/16 10/08/16 10/08/16 07:00 15:00 23:00 07:00 15:00 23:00 Intake Total 720 ml 400 ml 360 ml Output Total 900 ml 450 ml 250 ml Balance -900 ml 720 ml 400 ml -450 ml 110 ml Intake Oral 720 ml 400 ml 360 ml Output Urine Total 900 ml 450 ml 250 ml # Voids 2 1 # Bowel Movements 3 1 Result Diagram: 10/08/16 0622 10/07/16 0702 Objective Remarks GENERAL: Patient is a well-nourished, well-developed patient, in no apparent distress. HEAD: Occipital area with a quater size lump. CARDIOVASCULAR: Regular rate and rhythm without murmurs, gallops, or rubs. RESPIRATORY: There are some faint crackles at the bases bilaterally. Otherwise clear to auscultation. GASTROINTESTINAL: Abdomen soft, non-tender, nondistended. Normal active bowel sounds MUSCULOSKELETAL: Range of motion of all major joints improved. No joint effusion or lower extremity edema noted. NEURO: Alert. Oriented to self, year and month. He is joking around. Occasionally confused but follow most commands. Strength 5/5 on the left upper and lower extremities. 4+/5 on the right. PSYCH: Appear calm. A/P Problem List: (1) Weakness ICD Code: R53.1 Status: Acute (2) Dehydration ICD Code: E86.0 Status: Acute (3) A-fib ICD Code: I48.91 Status: Acute (4) HTN (hypertension) ICD Code: I10 Status: Acute (5) Joint pain ICD Code: M25.50 Status: Acute Assessment and Plan 81-year-old male with encephalopathy and generalized weakness of unknown etiology. Encephalopathy: Brain MRI 10/02/16 with no acute process. EEG 10/02/16 with finding of basic generalized slowing in the theta range consistent with a mild encephalopathy versus drowsiness. Much improved since started on steroids. Continue to follow with serial neuro exam. Frequent re-orientation. - Appreciate neurology following. Repeat cervical spine MRI shows Inflammatory changes of the craniocervical junction and upper cervical spine as above including synovitis and reactive appearing enhancement of the articulations, mild epidural enhancement and a sliver of fluid in the retropharyngeal space. These findings are nonspecific. No drainable abscess identified. Differential would include craniocervical and/or atlantoaxial inflammatory arthropathy such as rheumatoid. 2. Otherwise degenerative changes as above. Associated moderate, chronic recurring spinal stenosis at C5/C6 and mild to moderate degrees of multilevel foraminal encroachment. - Patient appear to be responding to steroids. Rheumatoid factor screen is negative. - Transition to oral prednisone as he appears to be responding to this treatment. He will benefit from further workup outpatient by a grain farmworker. Generalized Weakness: progressive upper and lower extremity weakness x1 wk w/ associated neck stiffness prior to admission, no recent viral infection. S/p eval by Dr. Lee Hicks, sent for outpatient MRI C-Spine, reportedly normal and referred to ER for further evaluation. CT Head/C-Spine at [facility] also reportedly negative. Neurology as well as orthopedic surgery following. Infectious disease following. Infection less likely. S/P LP. CSF studies/ cultures/cytology and Lyme ab all unremarkable so far. - Apparently patient was independent prior to his current illness. He is improving. PT to reevaluate him again today. Unsure if he will need senior care facility or home physical therapy. Pulmonary edema: No known history of CHF. He does have cardiomegaly on the chest x-ray. Will obtain a 2-D echocardiogram. Give a dose of 40 mg IV Lasix. Monitor I/O's. Monitor respiratory status. Diffuse joint pain: Involving the wrist and knee. Right knee effusion. No history of trauma. X-ray negative for fractures. - Orthopedics evaluated the patient and aspirated the joint. Fluid studies more consistent with an inflammatory process. Continue steroid as above. Follow cultures. Lump in occipital area: Discussed with radiology who reviewed his MRI and its most consistent with a sebaceous cyst. A-fib: Chronic. Coumadin was on hold. Resume Coumadin. Follow INR. HTN: Labile BP, Continue Lopressor 50 mg by mouth every 12H, Vasotec when necessary DVT Prophylaxis: SCD/Teds. On Coumadin. Discharge Planning Patient will need rehab vs [facility] once workup and treatment completed. Isabella Mireles MD Oct 08, 2016 11:21
[2016-10-08 12:00] VITALS: BP 125/70; PULSE 56; RESP 20; TEMP 97.8; O2SAT 94
[2016-10-08] MEDS ORDERED: PILL SPLITTER OTHER PRN (12:15)
[2016-10-08] MEDS: predniSONE 20 MG TAB PO SCH (13:30)
[2016-10-08 14:47] LABS: ANA SCREEN POS (NEG)
[2016-10-08] MEDS: WARFARIN SOD 5 MG TAB PO SCH (15:05)
[2016-10-08 16:46] VITALS: BP 132/81; PULSE 76; RESP 18; TEMP 98.1; O2SAT 93
[2016-10-08] MEDS ORDERED: GADODIAMIDE PF 287 MG/ML 20 ML VIAL (for RAD MRI) IV ONE (17:22)
--- NOTE | 2016-10-08 17:45 | RADRPT ---
EXAM DATE/TIME: 10/08/2016 16:55 [facility] COMPARISON: MRI CERVICAL SPINE W & W/O CONTRAST, October 06, 2016, 18:18. INDICATIONS : Bilateral upper extremity weakness. CONTRAST: 20 cc Omniscan (gadodiamide) IV MEDICAL HISTORY : Hypertension. SURGICAL HISTORY : Bilateral cataract surgery. Left arm squamous cell melanoma. ENCOUNTER: Subsequent ACUITY: 4-6 days PAIN SCORE: 5/10 LOCATION: neck. TECHNIQUE: Multiplanar, multisequence MRI examination of the cervical spine was performed. FINDINGS: Overall there has been an improvement in the appearance of the cervical spine. Small amount of fluid within the retropharyngeal space has decreased. The abnormal enhancement involving the soft tissues a t the craniocervical junction is essentially resolved. Edema involving the posterior paraspinal soft tissues centered at C3 and C4 is again seen and unchanged. A small amount of linear dural enhancement is seen at the craniocervical junction anteriorly. No nodularity. This is stable. No abscess. No abn ormal signal involving the cord. Multiple level degenerative changes described on the study from 2 da ys ago are again seen and described on that report. CONCLUSION: 1. Overall improvement when compared to the prior study. Mild edema involving the soft tissues at the upper cervical spine with minimal linear enhancement of the dura at the craniocervical junction and small amount of fluid within the retropharyngeal space. 2. Stable degenerative changes described on the prior report. Munir Cui Jr., MD on October 08, 2016 at 17:33 Board Certified Radiologist. This report was verified electronically.
[2016-10-08 20:30] VITALS: BP 164/91; PULSE 68; RESP 20; TEMP 97.2; O2SAT 92
--- NOTE | 2016-10-08 21:02 | EC ---
Study Study Date:10/08/2016 STUDY CONCLUSIONS SUMMARY - Left ventricle: The cavity size was at the upper limits of normal. Wall thickness was increased in a pattern of mild LVH. Systolic function was normal. The estimated ejection fraction was 55%. Wall motion was normal; there were no regional wall motion abnormalities. - Aortic valve: Mildly calcified annulus. Trileaflet; mildly thickened leaflets. - Mitral valve: Prolapse. Mild regurgitation. - Left atrium: The atrium was mildly to moderately dilated. - Tricuspid valve: Mild regurgitation. - Pulmonary arteries: PA peak pressure: 34mm Hg (S). If LV function is below 40, please consider prescribing an ACEI or ARB or document rationale for non-use. PROCEDURE DATA STUDY STATUS: Elective. Procedure: Transthoracic echocardiography. Image quality was good. Scanning was performed from the parasternal, apical, and subcostal acoustic windows. Study completion: The patient tolerated the procedure well. Transthoracic echocardiography. M-mode, complete 2D, complete spectral Doppler, and color Doppler. Patient status: Inpatient. CARDIAC ANATOMY LEFT VENTRICLE: The cavity size was at the upper limits of normal. Wall thickness was increased in a pattern of mild LVH. Systolic function was normal. The estimated ejection fraction was 55%. Wall motion was normal; there were no regional wall motion abnormalities. AORTIC VALVE: Mildly calcified annulus. Trileaflet; mildly thickened leaflets. Doppler: Transvalvular velocity was within the normal range. There was no stenosis. No regurgitation. AORTA: Aortic root: The aortic root was mildly dilated. MITRAL VALVE: Prolapse. Doppler: Transvalvular velocity was within the normal range. There was no evidence for stenosis. Mild regurgitation. Mean gradient: 3mm Hg (D). Peak gradient: 11mm Hg (D). LEFT ATRIUM: The atrium was mildly to moderately dilated. RIGHT VENTRICLE: The cavity size was normal. Wall thickness was normal. PULMONIC VALVE: Doppler: Transvalvular velocity was within the normal range. There was no evidence for stenosis. No regurgitation. TRICUSPID VALVE: Structurally normal valve. Doppler: Transvalvular velocity was within the normal range. Mild regurgitation. PULMONARY ARTERY: The main pulmonary artery was normal-sized. Systolic pressure was within the normal range. RIGHT ATRIUM: The atrium was normal in size. PERICARDIUM: There was no pericardial effusion. SYSTEMIC VEINS: Inferior vena cava: The vessel was normal in size. BASIC MEASUREMENTS ADULT Normal Left ventricle LV internal dimension, ED, chordal level, 51.2 mm 43-52 PLAX LV internal dimension, ES, chordal level, *39.8 mm 23-38 PLAX Fractional shortening, chordal level, PLAX *22 % >29 LV posterior wall thickness, ED 8.47 mm IVS/LVPW ratio, ED *1.46 <1.3 Ventricular septum Septal thickness, ED 12.4 mm Aortic valve Leaflet separation 22 mm 15-26 Left atrium Anterior-posterior dimension 46 mm Right ventricle RV internal dimension, ED, PLAX 22.3 mm 19-38 BASIC MEASUREMENTS ADULT Normal Aortic valve Leaflet separation 22 mm 15-26 Aorta Root diameter, ED *39 mm 20-37 Left atrium Anterior-posterior dimension, ES 38 mm 19-40 LA/aortic root ratio 0.97 DOPPLER MEASUREMENTS ADULT Normal Main pulmonary artery Pressure, S *34 mm Hg =30 Aortic valve VTI, S 43.9 cm Mitral valve Peak E-wave velocity 146 cm/s Peak A-wave velocity 38.9 cm/s Mean velocity, D 81.3 cm/s Mean gradient, D 3 mm Hg Peak gradient, D 11 mm Hg Peak E/A ratio 3.8 Tricuspid valve Regurgitant peak velocity 243 cm/s Peak RV-RA gradient, S 24 mm Hg Maximal regurgitant velocity 243 cm/s Systemic veins Estimated CVP 10 mm Hg Right ventricle RV pressure, S *34 mm Hg <30 LEGEND: Mean values are shown as u=mean value. Asterisk (*) calle values outside specified normal range. Prepared and signed by Chito Cervantes [id number]
[2016-10-09] VITALS (7 sets, daily range): BP systolic 132–177; BP diastolic 5–98; PULSE 55–73; RESP 18–20; TEMP 96.4–97.8; O2SAT 93–97
[2016-10-09] MEDS: ENALAPRILAT 1.25 MG/ML VIAL IV PUSH PRN (04:07)
[2016-10-09] MEDS: ACETAMINOPHEN/HYDROcodone 325 MG/5 MG TAB PO PRN ×2 (04:07→15:21)
[2016-10-09] MEDS ORDERED: ENALAPRILAT 2.5 MG/2 ML VIAL IV PUSH ONE (05:15)
[2016-10-09] MEDS: SODIUM CHLORIDE 0.9% FLUSH 5 ML FLUSH FLUSH PRN (05:35)
[2016-10-09] MEDS: SODIUM CHLORIDE 0.9% FLUSH 5 ML FLUSH FLUSH SCH (09:00)
[2016-10-09 09:36] LABS: HEMATOCRIT 38.6 % (39.0-51.0); MEAN CELL VOLUME 92.5 FL (80.0-100.0); MEAN CORPUSCULAR HEMOGLOBIN 31.5 PG (27.0-34.0); PLATELET COUNT 302 TH/MM3 (150-450); RED BLOOD COUNT 4.17 MIL/MM3 (4.50-5.90); RED CELL DISTRIBUTION WIDTH 13.1 % (11.6-17.2); REVIEW FLAG FINAL; WHITE BLOOD COUNT 14.3 TH/MM3 (4.0-11.0)
[2016-10-09 09:43] LABS: INTERNATIONAL NORMALIZED RATIO 1.2 RATIO; PROTHROMBIN TIME - PATIENT 13.8 SEC (9.8-11.6)
[2016-10-09] MEDS: PRAVASTATIN SOD 20 MG TAB PO SCH (09:54)
[2016-10-09] MEDS: predniSONE 20 MG TAB PO SCH (09:54)
[2016-10-09] MEDS: METOPROLOL TARTRATE 50 MG TAB PO SCH (09:54)
[2016-10-09] MEDS: PANTOPRAZOLE SOD 40 MG DELAYED RELEASE TAB PO SCH (09:54)
[2016-10-09 10:12] LABS: BICARBONATE 29.5 MEQ/L (21.0-32.0); POTASSIUM 3.7 MEQ/L (3.5-5.1)
--- NOTE | 2016-10-09 11:59 | PD.ORT.PN ---
Subjective Subjective Remarks seen in hospital with son and his patient has no complaints of neck pain, mild degree of stiffness pt states right knee pain has resolved alert and oriented Objective Vitals Vital Signs Date Time Temp Pulse Resp B/P Pulse Ox O2 Delivery O2 Flow Rate FiO2 10/09/16 08:33 97.2 67 18 169/97 96 10/09/16 05:43 161/5 10/09/16 04:45 164/98 177/89 10/09/16 04:39 18 10/09/16 04:24 97.8 72 20 173/96 93 10/09/16 00:18 97.6 55 18 132/73 97 10/08/16 20:30 97.2 68 20 164/91 92 10/08/16 16:46 98.1 76 18 132/81 93 10/08/16 12:00 97.8 56 20 125/70 94 I/O 10/08/16 10/08/16 10/08/16 10/09/16 10/09/16 10/09/16 07:00 15:00 23:00 07:00 15:00 23:00 Intake Total 1080 ml 840 ml 240 ml Output Total 450 ml 1050 ml 600 ml 200 ml Balance -450 ml 30 ml 240 ml 40 ml Intake Oral 1080 ml 840 ml 240 ml IV Total 0 ml Output Urine Total 450 ml 1050 ml 600 ml 200 ml # Voids 1 Result Diagram: 10/09/16 0825 10/09/16 0825 Other Results Laboratory Tests Test 10/09/16 08:25 Prothrombin Time 13.8 SEC (9.8-11.6) Prothromb Time International 1.2 RATIO Ratio Imaging Last 24 hours Impressions Chest X-Ray 10/08/16 0000 Signed Impressions: Service Date/Time: Saturday, October 08, 2016 06:17 - CONCLUSION: Cardiomegaly with bilateral perihilar pulmonary edema likely CHF. Cesar Tidwell MD Objective Remarks seen by Dr. Lee Hicks right knee effusion has resolved, good ROM with no tenderness Minimal neck tenderness No focal neuro deficits Assessment & Plan Assessment and Plan R knee synovial fluid anaylsis is not c/w infection or crystal arthropathy, final cx negative @ 72 hrs WBC improved today continue medical management of mental status change OOB with assistance;PT for assistive ambulation discharge to most likely SNF when medically stable- patient requiring moderate to max assistance with transfers orthopedically stable, will see patient Darline Stroud Oct 09, 2016 11:59
[2016-10-09] MEDS ORDERED: METO-309 PO (13:54)
[2016-10-09] MEDS ORDERED: PANT40TA3 PO (13:54)
[2016-10-09] MEDS ORDERED: HYDR-3516 PO (13:54)
[2016-10-09] MEDS ORDERED: PRED10 PO (13:54)
[2016-10-09] MEDS ORDERED: WARF-21 PO (13:54)
[2016-10-09] MEDS ORDERED: WARF-23 PO (13:54)
--- NOTE | 2016-10-09 14:11 | HHI.DS ---
Discharge Summary Admission Date Oct 04, 2016 at 08:38 Discharge Date: Oct 09, 2016 Admitting Diagnosis Bilateral upper and lower extremity weakness, (1) Weakness ICD Code: R53.1 (2) Dehydration ICD Code: E86.0 (3) A-fib ICD Code: I48.91 (4) HTN (hypertension) ICD Code: I10 (5) Joint pain ICD Code: M25.50 Procedures LP, Right knee aspiration Brief History - From Admission History of present illness from admitting physician: This is an 81-year-old male with PMH of HTN, A. fib on Coumadin and Hyperlipidemia who was referred to the ER by his Orthopedic Surgeon, Dr. Lee Hicks for further evaluation of weakness. Pt poor historian, however he notes significant pain in the "back of my head" for approx 1wk, shortly after developed weakness of bilateral arms and legs. Per , pt has been unable to ambulate x1 wk since onset of symptoms. Denies recent fever, chills, nausea, vomiting or sick contacts. Was seen at [facility], CT Head/C-Spine reportedly negative and pt diagnosed w/ Cervical Torticollis and was d/c'd from ER. Seen by Dr. Hicks and referred for outpatient MRI C-Spine, also reportedly normal however sent to ER for progressive symptoms. On arrival, BP 149/92, HR 119, O2 sat 91% on RA, Temp 99.2. CBC unremarkable except for elevated neutrophil count. Chemistry unremarkable except for GFR 71. UA negative for UTI, mild hematuria. INR 2.3. CBC/BMP: 10/09/16 0825 10/09/16 0825 Significant Findings Laboratory Tests Test 10/06/16 10/07/16 10/07/16 10/08/16 15:24 07:02 13:06 06:22 Synovial Fluid Appearance MODERATE (CLEAR) Synovial Fluid WBC 2610 /MM3 (0-200) Synovial Fluid RBC 1915 /MM3 (0-0) Synovial Fluid Neutrophils 100 % (0-25) White Blood Count 13.0 TH/MM3 21.5 TH/MM3 (4.0-11.0) (4.0-11.0) Red Blood Count 4.15 MIL/MM3 3.94 MIL/MM3 (4.50-5.90) (4.50-5.90) Hemoglobin 12.9 GM/DL 12.1 GM/DL (13.0-17.0) (13.0-17.0) Hematocrit 38.9 % 36.4 % (39.0-51.0) (39.0-51.0) Erythrocyte Sedimentation Rate 64 mm/hr (0-20) Chloride Level 110 MEQ/L (98-107) Blood Urea Nitrogen 22 MG/DL (7-18) Random Glucose 154 MG/DL (74-106) C-Reactive Protein 12.90 MG/DL (0.00-0.30) Anti-Nuclear Antibody Screen POS (NEG) Neutrophils (%) (Auto) 90.3 % (16.0-70.0) Lymphocytes (%) (Auto) 3.3 % (9.0-44.0) Neutrophils # (Auto) 19.4 TH/MM3 (1.8-7.7) Lymphocytes # (Auto) 0.7 TH/MM3 (1.0-4.8) Monocytes # (Auto) 1.3 TH/MM3 (0-0.9) B-Type Natriuretic Peptide 160 PG/ML (0-100) Test 10/08/16 10/08/16 10/09/16 06:42 06:49 08:25 C-Reactive Protein 7.43 MG/DL 5.20 MG/DL (0.00-0.30) (0.00-0.30) Erythrocyte Sedimentation Rate 65 mm/hr (0-20) 72 mm/hr (0-20) White Blood Count 14.3 TH/MM3 (4.0-11.0) Red Blood Count 4.17 MIL/MM3 (4.50-5.90) Hematocrit 38.6 % (39.0-51.0) Prothrombin Time 13.8 SEC (9.8-11.6) Blood Urea Nitrogen 24 MG/DL (7-18) Imaging Last Impressions Chest X-Ray 10/08/16 0000 Signed Impressions: Service Date/Time: Saturday, October 08, 2016 06:17 - CONCLUSION: Cardiomegaly with bilateral perihilar pulmonary edema likely CHF. Cesar Tidwell MD Cervical Spine MRI 10/08/16 0000 Signed Impressions: Service Date/Time: Saturday, October 08, 2016 16:55 - CONCLUSION: 1. Overall improvement when compared to the prior study. Mild edema involving the soft tissues at the upper cervical spine with minimal linear enhancement of the dura at the craniocervical junction and small amount of fluid within the retropharyngeal space. 2. Stable degenerative changes described on the prior report. Munir Cui Jr., MD Lower Extremity Ultrasound 10/05/16 0000 Signed Impressions: Service Date/Time: Wednesday, October 05, 2016 16:27 - CONCLUSION: Normal examination. Bob Neal MD Knee X-Ray 10/05/16 0000 Signed Impressions: Service Date/Time: Wednesday, October 05, 2016 14:36 - CONCLUSION: 1. Large joint effusion. 2. No evidence of fracture. 3. Osteoarthritic findings with minimal tract are normal osteophytes and mild medial compartment narrowing. Irving Romero MD Brain MRI 10/02/16 0000 Signed Impressions: Service Date/Time: September 12:09 - CONCLUSION: 1. No acute intracranial abnormality. 2. Atrophy and chronic small vessel ischemic change. 3. Area of encephalomalacia within the right occipital lobe. Munir Cui Jr., MD PE at Discharge GENERAL: Patient is a well-nourished, well-developed patient, in no apparent distress. HEAD: Occipital area with a quater size lump. CARDIOVASCULAR: Regular rate and rhythm without murmurs, gallops, or rubs. RESPIRATORY: Clear to auscultation bilaterally. No wheezing or rhonchi. No crackles. GASTROINTESTINAL: Abdomen soft, non-tender, nondistended. Normal active bowel sounds MUSCULOSKELETAL: Range of motion of all major joints improved. No joint effusion or lower extremity edema noted. NEURO: Alert. Oriented to self, year and month. He knows he is in the hospital but does not know the name. He knows the president. Strength 5/5 on the left upper and lower extremities. 4+/5 on the right. PSYCH: Appear calm. Pt update on day of discharge Patient and family reports that he is getting stronger. He is using the walker better. Yesterday afternoon he became tired after physical therapy but is feeling better this morning. Neck pain is much improved. Hospital Course 81-year-old male with an unusual presentation and hospital course. The patient presented with encephalopathy and generalized weakness of unknown etiology. He has had an extensive workup and was followed by neurology, infectious disease, and orthopedics. Evaluation and treatment course detailed below: Encephalopathy and generalized weakness: Brain MRI 10/02/16 with no acute process. EEG 10/02/16 with finding of basic generalized slowing in the theta range consistent with a mild encephalopathy versus drowsiness. The patient improved with steroid and is close to his baseline. Patient followed by neurology. Repeat cervical spine MRI shows Inflammatory changes of the craniocervical junction and upper cervical spine as above including synovitis and reactive appearing enhancement of the articulations, mild epidural enhancement and a sliver of fluid in the retropharyngeal space. These findings are nonspecific. No drainable abscess identified. Differential would include craniocervical and/or atlantoaxial inflammatory arthropathy such as rheumatoid. 2. Otherwise degenerative changes as above. Associated moderate, chronic recurring spinal stenosis at C5/C6 and mild to moderate degrees of multilevel foraminal encroachment. The patient has had progressive upper and lower extremity weakness x1 wk w/ associated neck stiffness prior to admission, no recent viral infection that he knows of. S/p eval by Dr. Lee Hicks, sent for outpatient MRI C-Spine, reportedly normal and referred to ER for further evaluation. CT Head/C-Spine at [facility] also reportedly negative. To summarize, the patient has had an extensive workup for the encephalopathy and generalized weakness. He's had CSF studies, culture, cytology and Lyme antibodies all negative. Rheumatoid screen also negative. The only significant findings was the inflammation about the cervical spine noted on MRI. He responded very well to steroid and has been improving. He would benefit from further workup outpatient by a county home demonstration agent. He is discharged on a steroid taper. All of this was explained to the family. He is discharged to acute rehab to continue to get stronger. Pulmonary edema: No known history of CHF. He does have cardiomegaly on the chest x-ray. 2-D echo was unremarkable. He responded well to one time dose of IV Lasix. This was likely secondary to overhydration since he was not eating much for the first couple of days of his admission. Diffuse joint pain: Involving the wrist and knee. Right knee effusion. No history of trauma. X-ray negative for fractures. - Orthopedics evaluated the patient and aspirated the joint. Fluid studies more consistent with an inflammatory process. Cultures negative. Lump in occipital area: Discussed with radiology who reviewed his MRI and its most consistent with a sebaceous cyst. A-fib: Chronic. Coumadin was on hold due to procedures. Coumadin resumed. INR needs to be followed. HTN: Labile BP, Continue Lopressor 50 mg by mouth every 12H. Pt Condition on Discharge: Stable Discharge Disposition: Rehab Inpatient Discharge Time: > 30 minutes Discharge Instructions DIET: Follow Instructions for: Heart Healthy Diet Activities you can perform: See Additionl Instruction Other Activity Instructions: Per PT instructions. Follow up Referrals: Appointment for Follow Up - 2 Weeks with PCP Rheumatology New Medications: Prednisone (Prednisone) 10 Mg Tab 10 MG PO DIRECTED Take 30 mg daily for 4 days, then 20 mg daily for 4 days, then 10 mg daily for 4 days. #24 Ref 0 TAB Hydrocodone-Acetaminophen (Hydrocodone-Acetaminophen) 5-325 mg Tab 1 TAB PO Q4H PRN PAIN GREATER THAN 5 #30 TAB Metoprolol Tartrate (Lopressor) 50 Mg Tab 50 MG PO Q12HR #60 TAB Pantoprazole (Pantoprazole) 40 Mg Tab 40 MG PO DAILY #30 TAB Changed Medications: Warfarin (Warfarin) 5 Mg Tab 5 MG PO DAILY Thursday and Blood Clot Prevention #30 Ref 0 TAB ( Medication details modified) Warfarin (Warfarin) 7.5 Mg Tab 7.5 MG PO DAILY Thursday, Thursday, Thursday, Thursday, Thursday Blood Clot Prevention #30 Ref 0 TAB (Medication details modified) Continued Medications: Pravastatin (Pravastatin) 20 Mg Tab 20 MG PO DAILY Cholesterol Management #30 Ref 0 TAB Saw Midvale-Zinc (Saw Midvale Extract) 160-15 mg Cap 450 MG PO DAILY Ref 0 CAP Discontinued Medications: ([Magnesium ]) 250 MG Isabella Mireles MD Oct 09, 2016 14:11
--- NOTE | 2016-10-09 15:10 | HHI.PR ---
Addendum to Inpatient Note Additional Information All CSF w/u was reviewed and is non revealing for any active infection Specifically negative Lyme bands, CSF clx, HSV He has negative RPR He has however + HATTIE with P titer Also it was bnoted that pt has a arthrocenthesis of R knee His synovial fluid is not cw infx (low WBC clx, neg Gstain and clx @ 72 hrs) Rec's: No e/o LOAN ADVISER infx No need for antimicrobial ts at this point Consider to persue w/u for non infectious cause (paraneoplastic, CTD) will s/o since dw Cristina Pulido MD Oct 09, 2016 15:10
[2016-10-09] MEDS: WARFARIN SOD 5 MG TAB PO SCH (15:22)
[2016-10-09 16:41] LABS: INTERNATIONAL NORMALIZED RATIO 1.2 RATIO; PROTHROMBIN TIME - PATIENT 13.9 SEC (9.8-11.6)
[2016-10-11 23:54] LABS: BETA2 GLYCOPROTEIN I AB IGA LESS THAN 9.0 SAU (< OR = 20)
--- NOTE | 2016-10-13 16:38 | RADRPT ---
EXAM DATE/TIME: 10/05/2016 11:07 [facility] COMPARISON: No previous studies available for comparison. INDICATIONS : Patient with a history of confusion and weakness. MEDICAL HISTORY : HTN AFIB Hyperlipidemia SURGICAL HISTORY : Bilateral cataract surgery Squamous cell melanoma left arm ENCOUNTER: Initial ACUITY: 3 days PAIN SCORE: 9/10 LOCATION: lower quadrant LUMBAR PUNCTURE TIME: 1115 hours FLUORO TIME: 1.4 minutes ACCESS LEVEL: L3-4 OPENING PRESSURE: 23 cm of water CLOSING PRESSURE: Not requested. FLUID: 22 cc of clear CSF was collected and sent to the laboratory for analysis. PROCEDURE : 1. Fluoroscopic guided lumbar puncture. 2. Recording of opening pressure. The risks, benefits and alternatives to the procedure were explained and verbal and written consent w as obtained. The site was prepped in sterile fashion. Full sterile technique was used, including ca p, mask, sterile gloves and gown and a large sterile sheet. Hand hygiene and 2% chlorhexidine and/or betadine/alcohol prep was utilized per protocol for cutaneous antisepsis. The skin and subcutaneous tissues were infiltrated with local anesthetic solution. With fluoroscopic guidance the lumbar thecal sac was punctured at the above level described above and the opening pressure was recorded. The above described fluid was removed without difficulty. The patient tolerated the procedure well and there were no complications. CONCLUSION: Uncomplicated fluoroscopically guided lumbar puncture with pressures as above. Da Dimas MD on October 13, 2016 at 16:16 Board Certified Radiologist. This report was verified electronically.
[2016-10-14] MEDS ORDERED: [UNRECOGNIZED DRUG - SUPPLY] (17:16)
[2016-10-17] MEDS ORDERED: WARF-23 PO (08:45)
[2016-10-17] MEDS ORDERED: PRED10 PO (08:45)
[2016-10-17] MEDS ORDERED: WARF-21 PO (08:45)
[2016-10-17] MEDS ORDERED: ACET325T PO (08:45)
[2016-10-17] MEDS ORDERED: PRAV20TA2 PO (08:45)
[2016-10-17] MEDS ORDERED: PANT40TA3 PO (08:45)
[2016-10-17] MEDS ORDERED: METO-309 PO (08:45)
[2016-10-17] MEDS ORDERED: AMLO5 PO (08:45)
[2016-10-17] MEDS ORDERED: LATA.005%O EACH EYE (08:45)
[2016-10-17] MEDS ORDERED: METO25TA3 PO (11:57)
== END 2016-10-09 16:21 | DRG 551 ==
LOC: NEPE 11:44 → NEDA 20:40 → INTOOBSV 20:40 → NEDH 10-02 00:40 → NEPFCDU 10-02 19:45 → OBSVTOIN 10-04 08:38 → N05B 10-06 17:38
PROVIDERS: ADMIT Family Medicine; ATTEND Family Medicine
PROC: 009U3ZX Drainage of Spinal Canal, Percutaneous Approach, Diagnostic (ICD-10-PCS; principal; 2016-10-05)
PROC: 0S9C3ZZ Drainage of Right Knee Joint, Percutaneous Approach (ICD-10-PCS; 2016-10-06)
DX: M50.30 Other cervical disc degeneration, unspecified cervical region (principal); G93.40 Encephalopathy, unspecified; E87.70 Fluid overload, unspecified; I48.2 Chronic atrial fibrillation; E86.0 Dehydration; M48.02 Spinal stenosis, cervical region; E78.00 Pure hypercholesterolemia, unspecified; I10 Essential (primary) hypertension; E78.5 Hyperlipidemia, unspecified; R53.1 Weakness; H40.9 Unspecified glaucoma; H91.90 Unspecified hearing loss, unspecified ear; Z85.820 Personal history of malignant melanoma of skin; Z79.01 Long term (current) use of anticoagulants; M19.90 Unspecified osteoarthritis, unspecified site; M25.78 Osteophyte, vertebrae; L72.3 Sebaceous cyst; M25.461 Effusion, right knee; M65.9 Synovitis and tenosynovitis, unspecified; Z23 Encounter for immunization
CPT/HCPCS: 36600; 62270; 70551; 71010; 72156; 73560; 77003; 80048; 80053; 81001; 82550; 82805; 82945; 83880; 84157; 84443; 85025; 85027; 85610; 85613; 85652; 85730; 86038; 86039; 86140; 86147; 86160; 86200; 86225; 86256; 86403; 86430; 86592; 86618; 87040; 87070; 87102; 87205; 87206; 88112; 89051; 89060; 90471; 90732; 93306; 93971; 94150; 95819; A9579; G0009; G0378; G8987-GP; G8988-GP; J1940; J2270; J2920; J2930; J7030; J7512